=== PATIENT | male | born 1960 | race Caucasian/White ===

== ENCOUNTER 2019-09-04 14:18 | Observation (INO) | payer OTHER, SELFPAY ==
[2019-09-04] VITALS (17 sets, daily range): BP systolic 165–211; BP diastolic 11–113; PULSE 59–90; RESP 14–21; TEMP 36.4–36.8; O2SAT 95–98; BMI 21.8; BMI 21.9; BMI 22.0
--- NOTE | 2019-09-04 14:26 | RAD_ITS ---
STUDY: X-RAY CHEST REASON FOR EXAM: Male, 59 years old. Left face numbness and tingling TECHNIQUE: Single AP portable view of the chest. COMPARISON: None. FINDINGS: There is hyperinflation of the lungs consistent with chronic obstructive lung disease (COPD). There is no demonstrated pleural abnormality. Normal size heart. Normal mediastinum and shiraz. Normal visualized pulmonary arteries. Normal visualized aortic arch and descending thoracic aorta. Normal visualized thoracic spine. Normal visualized ribs, clavicles, and shoulders. There is no demonstrated abnormality of the visualized soft tissue structures of the upper abdomen. RAD/Chest 1 View IMPRESSION: Emphysema without pneumonia or atelectasis. Electronically Signed: Yoseph Maradiaga MD at 15:13 EDT Tel , Service support ,
--- NOTE | 2019-09-04 14:26 | CT_ITS ---
We are attempting to reach an attending provider to discuss findings. An addendum with communication details will be sent when the communication is complete. STUDY: CT BRAIN WITHOUT CONTRAST REASON FOR EXAM: Male, 59 years old. Left-sided numbness. RADIATION DOSAGE (If Supplied By Facility): CTDIvol = ( 60.81 ) mGy, DLP = ( 1089.89 ) mGycm TECHNIQUE: Transaxial CT imaging of the brain was performed without administration of intravenous contrast material. Individualized dose optimization techniques were used for this CT. COMPARISON: No relevant priors. FINDINGS: Normal soft tissue structures. Normal calvarium. Normal size ventricles and extra-axial spaces for the patient's age. Normal white matter tracts of the cerebral hemispheres. Normal basal ganglia and thalami. Normal brainstem. Normal cerebellum. There is no intracranial hemorrhage. There are 2 areas of ill-defined decreased attenuation within the left parietal lobe which may represent subacute infarcts or masses. Correlation with MRI with contrast is recommended. Normal visualized paranasal sinuses. CT/Brain/Head without Contrast IMPRESSION: 2 irregular areas of decreased attenuation within left parietal lobe which may represent subacute infarcts or masses. Correlation MRI with contrast is recommended. No acute intracranial hemorrhage. Electronically Signed: Yoseph Maradiaga MD at 14:47 EDT Tel , Service support ,
--- NOTE | 2019-09-04 14:26 | EKG12_ITS ---
Test Reason : STROKEALERT Blood Pressure : / mmHG Vent. Rate : 071 BPM Atrial Rate : 071 BPM P-R Int : 192 ms QRS Dur : 096 ms QT Int : 432 ms P-R-T Axes : 062 -29 038 degrees QTc Int : 469 ms Normal sinus rhythm Minimal voltage criteria for LVH, may be normal variant Borderline ECG Confirmed by SILVIA ALTMAN, KAYLA ([id number]), news assignment editor JENNI ARTEAGA ([id number]) on 09/10/2019 9:34:17 AM Referred By: Whitley Lu Confirmed By:GEORGE VEGA MD
--- NOTE | 2019-09-04 14:27 | CT_ITS ---
STUDY: CTA HEAD AND NECK WITH CONTRAST REASON FOR EXAM: Male, 59 years old. Stroke, left-sided numbness RADIATION DOSAGE (If Supplied By Facility): CTDIvol = ( 14.43 ) mGy, DLP = ( 531.44 ) mGycm TECHNIQUE: CT angiography was performed with a multi-detector CT scanner. Data acquisition was obtained from the skull base through the vertex following intravenous administration of IV Isovue 370 100. MIP images were reconstructed from the axial data set. Post-processing of the angiographic images was performed, with multiplanar reformation and 3D reconstruction. Individualized dose optimization techniques were used for this CT. COMPARISON: No relevant priors. FINDINGS: Normal bilateral petrous carotid arteries. There is calcified plaque formation of the right cavernous carotid artery, without a cross-sectional luminal stenosis. There is calcified plaque formation of the left cavernous carotid artery, with a mild stenosis (less than 50%). Normal right A1 segments of the anterior cerebral artery. Normal left A1 segments of the anterior cerebral artery. Normal intact anterior communicating artery (ACOM). Normal bilateral A2 segments of the anterior cerebral arteries. Normal right M1 and M2 segments of the middle cerebral arteries, with a normal M1 bifurcation. Normal left M1 and M2 segments of the middle cerebral arteries, with a normal M1 bifurcation. Normal right posterior communicating artery (PCOM). Normal left posterior communicating artery (PCOM). Normal bilateral vertebral arteries. Normal basilar artery with a normal basilar bifurcation. The visualized bilateral superior cerebellar (SCA) arteries are normal. Normal bilateral P1, P2 and visualized P3 segments of the posterior cerebral arteries. There is no demonstrated aneurysm of the [place] of [place]. There is no demonstrated abnormality of the visualized brain. AORTIC ARCH: There is a bovine origin of the great vessels arising from the aortic arch with a common origin of the brachiocephalic and left common carotid artery. Normal origin of the left subclavian artery. Normal origins of the brachiocephalic, left common carotid, and left subclavian arteries. RIGHT CAROTID ARTERIES: Normal right common carotid artery (CCA). There is mild atherosclerotic plaque formation with minimal narrowing of the right carotid bulb. Normal origin of the right internal carotid (ICA) artery without a hemodynamically significant stenosis. Normal visualized cervical portion of the right internal carotid artery. Normal origin of the right external carotid artery (ECA). LEFT CAROTID ARTERIES: Normal left common carotid artery (CCA). There is mild atherosclerotic plaque formation with minimal narrowing of the left carotid bulb. Normal origin of the left internal carotid (ICA) artery without a hemodynamically significant stenosis. Normal visualized cervical portion of the left internal carotid artery. Normal origin of the left external carotid artery (ECA). VERTEBRAL ARTERIES: Normal bilateral vertebral arteries. CT/CTA Head AND Neck W/ Contrast IMPRESSION: 1. Normal CT of the head. 2. Mild amount of calcified plaque at both carotid bifurcations but no significant stenosis. 3. Patent vertebral arteries bilaterally. 4. A bovine arch. Electronically Signed: Yoseph Maradiaga MD at 15:12 EDT Tel , Service support ,
--- NOTE | 2019-09-04 14:33 | NURSING ---
NO OLD EKGS
[2019-09-04 14:46] LABS: Bedside Glucose 116 mg/dL (70-110)
--- NOTE | 2019-09-04 14:51 | ED.RN ---
[facility] SPEAKING WITH PT VIA ROBOT.
[2019-09-04 14:54] LABS: Absolute Lymphocyte Count 2.12 X10^3/uL (0.83-4.51); Basophil# 0.07 X10^3/uL; Eosinophil# 0.17 X10^3/uL; Eosinophils% 2.4 % (0-5); Hematocrit 41.4 % (40-54); Lymphocyte # 2.12 X10^3/ul (4.0); Lymphocyte % 29.9 % (19-41); Mean Corp Hgb Conc 33.8 g/dL (32-36); Mean Corpuscular Hgb 27.9 pg (27.0-32.0); Mean Corpuscular Volume 82.5 fL (80-94); Mean Platelet Vol. 9.1 fl (6.2-12.0); Monocyte# 0.69 X10^3/uL; Monocyte% 9.7 % (0-10); NRBC Flagged by Analyzer 0 % (0-5); Neutrophil % 56.4 % (47-70); Platelet Count 182 K/mm3 (150-450); RBC Distribution Width CV 13.2 % (11.6-14.6); RBC Distribution Width SD 39.3 fl (35.1-43.9); Red Blood Count 5.02 M/mm3 (4.6-6.2); White Blood Count 7.1 K/mm3 (4.4-11.0)
[2019-09-04 15:01] LABS: International Normalized Ratio 1.1; Prothrombin Time (Protime)PT. 13.9 SECONDS (11.7-14.9)
[2019-09-04] MEDS: Aspirin 325 MG Tablet PO (15:01)
[2019-09-04 15:02] LABS: Partial Thromboplast Time 27.6 Seconds (24.1-36.2)
[2019-09-04 15:11] LABS: Anion Gap 6 (5-15); BUN 16 mg/dL (7-18); BUN/Creat Ratio 12.4 RATIO (10-20); Calcium,Total 8.3 mg/dL (8.5-10.1); Chloride 103 mmol/L (98-107); Creatinine, Serum 1.29 mg/dL (0.70-1.30); EST Glomerular Filtration Rate 61 mL/min (>60); Est Glom Filt Rate - Afr Amer 73 mL/min (>60); Estimated Creatinine Clearance 74.74 ml/min; Glucose 103 mg/dL (74-106); Sodium Level 136 mmol/L (136-145)
--- NOTE | 2019-09-04 15:37 | PCM.HP.STD ---
Problem List (1) HTN (hypertension) Status: Chronic (2) Tobacco abuse Status: Resolved History of Present Illness Date of Admission: 09/04/19 Chief Complaint: Left face and left arm numbness. The patient is a 59 year old M who presents emergency room due to left face and left arm numbness which lasted less than 1 hour. He denies vision changes, slurred speech, facial droop, unilateral weakness or other neurologic symptoms. He reports his symptoms began around 2 PM and resolved prior to coming to the emergency room. He denies history of stroke. He reports he had an open cholecystectomy approximately 8 weeks ago and was told he had high blood pressure at that time. He was placed on lisinopril, he has not monitored his blood pressure since that time. He reports he quit smoking in February of this year. He denies other past medical history. Past Medical History Past Medical History (Chronic Problems): Chronic Problems HTN (hypertension) (Chronic) Allergies penicillin V potassium [From Pen-Vee K] Allergy (Verified 09/04/19 14:46) Unknown Home Medications: Ambulatory Orders Medication Instructions Recorded Naproxen [Naprosyn] 500 mg PO BID #20 tablet 02/05/16 Oxycodone HCl/Acetaminophen 1 - 2 tablet PO Q4H PRN PRN #20 02/05/16 [Percocet 5/325] tablet Lisinopril 20 mg PO DAILY 09/04/19 Surgical History: - - Open cholecystectomy, tonsillectomy Psychiatric History: No pertinent psych hx Lives: Spouse/ Significant Other Smoking Status: Former smoker Alcohol: None Drugs: None - *Family History Maternal History Items: - - Denies known paternal medical history including cardiac history. Paternal History Items: Heart Disease Review of Systems Constitutional: Denies: Chills, Fever, Weight Change HEENT: Denies: Head Aches, Sinus Congestion, Sinus Drainage Cardiovascular: Denies: Chest Pain, Palpitations Respiratory: Denies: Cough, Shortness of breath at rest, Sputum production Gastrointestinal: Denies: Abdominal Pain, Nausea, Vomiting Genitourinary: Denies: Dysuria Musculoskeletal: Reports: Arm Pain Skin: Denies: Rash, Wounds Neurological: Reports: Numbness - Left face and left arm. Denies: Focal weakness, Tingling Psychiatric: Denies: Anxiety, Depression, Homicidal Ideations, Suicidal Ideations Hematologic/ Lymphatic: Denies: Easy Bruising, Easy Bleeding VTE Information - Inpt Only VTE Present on Admission: No VTE Mechan Device Prophylaxis: None VTE Pharm Prophylaxis ordered?: Yes - Physical Exam General: Alert, Oriented x3, Cooperative HEENT: Atraumatic, PERRLA, EOMI, Normocephalic Neck: Supple, No JVD, Negative Carotid Bruits Lungs: Clear to auscultation, Normal air movement Cardiovascular: Regular rate, Regular Rhythm, Normal S1, Normal S2, No murmurs Abdomen: Bowel Sounds Present, Soft, Non Tender, Non-Distended Extremities: No clubbing, No cyanosis, No edema, Capillary Refill Less than 3 Seconds Skin: No rashes, No breakdown Musculoskeletal: No Tenderness to Palpation of Joints or Extremities Neurological: Cranial nerves II-XII grossly intact, Neuro grossly intact Psych/Mental Status: Normal Affect, Appropriate Vital Signs Temp Pulse Resp BP Pulse Ox 98.2 F 90 17 199/109 H 98 09/04/19 14:20 09/04/19 14:26 09/04/19 14:26 09/04/19 14:56 09/04/19 14:36 Oxygen Delivery Method Room Air Weight: 188 lb 14.978 oz Body Mass Index (BMI) 21.8 Finger Stick Blood Glucose 116 Laboratory Tests Past 24 Hrs 09/04/19 09/04/19 09/04/19 14:45 14:45 14:45 WBC 7.1 RBC 5.02 Hgb 14.0 Hct 41.4 MCV 82.5 MCH 27.9 MCHC 33.8 RDW Std Deviation 39.3 RDW Coeff of Joe 13.2 Plt Count 182 MPV 9.1 Immature Gran % (Auto) 0.600 Neut % (Auto) 56.4 Lymph % (Auto) 29.9 Isabella % (Auto) 9.7 Eos % (Auto) 2.4 Baso % (Auto) 1.0 Absolute Neuts (auto) 4.0 Absolute Lymphs (auto) 2.12 Nucleated RBC % 0 PT 13.9 INR 1.1 APTT 27.6 Sodium 136 Potassium 4.0 Chloride 103 Carbon Dioxide 27.0 Anion Gap 6 BUN 16 Creatinine 1.29 Estim Creat Clear Calc 74.74 Est GFR (MDRD) Af Amer 73 Est GFR (MDRD) Non-Af 61 BUN/Creatinine Ratio 12.4 Glucose 103 Calcium 8.3 L Troponin I < 0.015 POC Glucose 09/04/19 14:27 POC Glucose 116 H Assessment/Plan All Active Problems Tobacco abuse (Resolved) 1. Probable TIA-brain CT on admission shows 2 irregular areas of decreased attenuation within the left parietal lobe, possible subacute infarcts versus masses? CTA of head and neck normal. Obtain MRI of brain with and without contrast. Obtain echocardiogram. Check TSH, magnesium, hemoglobin A1c. NIHSS. PT/OT/ST. lipid profile in a.m. Aspirin, statin. 2. Hypertensive urgency-blood pressure systolic greater than 200 in ER. Patient received IV labetalol in ER. As needed hydralazine for systolic blood pressure greater than 220. Permissive given #1. Hold home lisinopril regimen. May need additional oral agents at discharge if blood pressure remains above goal following stroke work-up. 3. History of tobacco use-quit February 2018. DVT prophylaxis-SCDs, lovenox This patient was seen by KATIE Prince under the supervision of Dr. Lu.
--- NOTE | 2019-09-04 15:47 | ED.DCSUM_ITS ---
- ER Visit Summary Date of Service: 09/04/19 Chief Complaint: Numbness History of Present Illness: The patient is a 59 M who presents with left face and left arm numbness. Symptoms started suddenly at 2 PM. No other associated symptoms like weakness, facial droop, speech changes, or vision changes. No hi story of this before. History of hypertension and smoking. No blood thinners. Physical Examination: Blood pressure 203/110. Otherwise vitals unremarkable. Afebrile. NIH stroke scale is 1 for left face and left arm numbness. The remainder the exam is unremarkable. Test Results: CT brain showed left parietal subacute infarct versus masses. CTA showed plaques but otherwise unremarkable. Chest x-ray normal. Labs, troponin, EKG unremarkable. Emergency Department Course and Treatment: Patient symptoms are rapidly resolving. I suspect this is a TIA. He will need further inpatient evaluation. Neurology agreed. Hospitalist was contacted. He was treated with labetalol for his hypertension. Repeat blood pressure 166/110. No further symptoms. Hospitalist was contacted to admit. Treatment Plan: As above Disposition: Admission Impression: 1. Left-sided numbness 2. Hypertension This note was generated with [employer] software. It may contain incorrect words, spelling, and punctuation that were not noted in review of the chart prior to signing ED Disposition - Plan for ED Patient: Referrals: Gonzalo Franklin MD [Primary Care Provider] -
--- NOTE | 2019-09-04 15:53 | NURSING ---
107 OBS TIA, HYPERTENSION WHITE
--- NOTE | 2019-09-04 15:57 | ED.RN ---
d/c NIH per . 3 zero NIH's.
--- NOTE | 2019-09-04 16:05 | CM.ED ---
Social Work Responding to Stroke Alert. No family present. Patient life enrichment assistant present and stating that family will be contacted about current situation. This manager social media inquiring about this manager social media contact family, patient stating to be able to notify family on own. Patient alert and oriented and sitting up and speaking with this social work. Support provided. Wil MCELROY, QUAN
--- NOTE | 2019-09-04 16:14 | ED.RN ---
trandate arrived to ed from pharmacy after pt left for [facility]. no trandate in ed. [facility] Keron Prabhakar called and informed of what is going on.
--- NOTE | 2019-09-04 16:15 | ECHOD_ITS ---
Reason For Study: TIA/CVA Procedure This was a 2D Doppler, Color Flow transthoracic echocardiogram. Exam performed portable in patient room. Left Ventricle Normal LV size. Concentric left ventricular hypertrophy. The estimated ejection fraction is 55 %. No evidence for diastolic dysfunction. No regional wall motion abnormalities noted. Right Ventricle Normal RV size. Normal systolic function. Atria Normal left atrium. Normal right atrium. Probable patent foramen ovale. Bubble study was +ve for R to L shunt. Mitral Valve There is no mitral valve stenosis. No mitral valve insufficiency. Tricuspid Valve There is no tricuspid stenosis. No tricuspid valve insufficiency. Unable to estimate RV systolic pressure due to insufficient tricuspid regurgitant envelope. Aortic Valve Trisinus/trileaflet aortic valve. Mild diffuse aortic valve thickening. There is no aortic stenosis. Mild (1+) aortic valve insufficiency. Pulmonic Valve There is no pulmonic valvular stenosis. Trivial pulmonic valve insufficiency. Great Vessels Normal aortic root. Pericardium/Pleural No pericardial effusion. Medication Performed a rapid injection of agitated mix of 9 cc saline and 1cc air to assess for atrial septal defect. MMode/2D Measurements & Calculations LVIDd: 5.0 cm IVSd: 1.4 cm Ao root diam: 3.6 cm LVIDs: 3.5 cm LVPWd: 1.2 cm RVDd: 4.2 cm FS: 29.3 % LAV(MOD-bp): 33.2 ml LVAd ap4: 34.6 cm2 SV(MOD-sp4): 61.7 ml LAV(MOD-bp) Indexed: 15.1 ml/m2 EDV(MOD-sp4): 112.3 ml LAV(MOD-sp2): 36.7 ml EDV(sp4-el): 115.2 ml LAV(MOD-sp4): 25.6 ml LVAs ap4: 21.6 cm2 ESV(MOD-sp4): 50.7 ml ESV(sp4-el): 52.2 ml EF(MOD-sp4): 54.9 % EF(sp4-el): 54.7 % SV(sp4-el): 63.0 ml LA A4 area: 11.0 cm2 LA dimension(2D): 3.5 cm RA A4 area: 12.2 cm2 Doppler Measurements & Calculations MV E max clifford: 40.8 cm/sec Lat Peak E' Clifford: 3.2 cm/sec Med Peak E' Clifford: 2.7 cm/sec MV A max clifford: 80.6 cm/sec E/E' lat: 12.9 E/E' med: 15.0 MV E/A: 0.51 Ao V2 max: 115.9 cm/sec LV V1 max: 86.4 cm/sec PA V2 max: 71.7 cm/sec Ao max P.4 mmHg LV V1 max P.0 mmHg Ao V2 mean: 85.8 cm/sec Ao mean P.2 mmHg Ao V2 VTI: 25.6 cm Interpretation Summary No evidence for diastolic dysfunction. The estimated ejection fraction is 55 %. Probable patent foramen ovale. Bubble study was +ve for R to L shunt Mild (1+) aortic valve insufficiency. Ordering Physician: Whitley Lu Referring Physician: Gonzalo Franklin Performed By: Chanelle Groves RDCS, RVT
--- NOTE | 2019-09-04 16:22 | CHAPLAIN ---
Type of Pastoral Visit ___ Initial Visit ___ Follow-up Visit ___ On-call Visit ___ General Patient Visit ___ Spiritual Assessment ___ Family Conference ___ Bereavement _x__ Rapid Response ___ Code Blue ___ Other (describe below) Pastoral Care Referral From ___ Patient ___ Family ___ Nurse ___ Physician ___ Transit Driver ___ Reconciler _x__ Other (describe below) Sacrament/Intervention ___ Active listening ___ Anointing ___ Adventism ___ Bereavement ___ Communion ___ [place] ___ ___ Life review ___ Prayer ___ Reconciliation ___ Sacrament of Sick _x__ Supportive presence ___ Wedding ___ Other (describe below) Pastoral Comments arrived to stroke alert while patient was in CT; met with SO of patient and offered support as desired; SO declines support at this time
[2019-09-04 16:53] LABS: Magnesium 1.8 mg/dL (1.6-2.6); Thyroid Stim Hormone (TSH) 0.84 uIU/mL (0.358-3.74)
[2019-09-04] MEDS: 0.9% Normal Saline 1,000 ML 100 ML IV (16:53)
[2019-09-04 16:54] LABS: Hemoglobin A1c 5.3 % (4.2-6.3)
--- NOTE | 2019-09-04 17:13 | EKG12_ITS ---
Test Reason : CP ADMIT Blood Pressure : / mmHG Vent. Rate : 059 BPM Atrial Rate : 059 BPM P-R Int : 176 ms QRS Dur : 096 ms QT Int : 466 ms P-R-T Axes : 031 -27 045 degrees QTc Int : 461 ms Sinus bradycardia Minimal voltage criteria for LVH, may be normal variant Borderline ECG When compared with ECG of 04-SEP-2019 14:46, MANUAL COMPARISON REQUIRED, DATA IS UNCONFIRMED Confirmed by CHARLES LANDON ([id number]), editor house organ JENNI ARTEAGA ([id number]) on 09/10/2019 10:48:45 AM Referred By: Whitley Lu Confirmed By:CHARLES LANDON
[2019-09-04] MEDS: LORazepam 2 MG/ML Syringe 1 MG IV (18:21)
[2019-09-04] MEDS: 0.9% NaCl Peripheral Flush Adult/Peds IV (21:20)
[2019-09-04] MEDS: Famotidine 20 MG Tablet PO (21:21)
[2019-09-04] MEDS: Atorvastatin Calcium 80 MG Tablet PO (21:21)
[2019-09-04 22:25] LABS: Amphetamine Urine VISTA NEGATIVE (<1000 ng/mL); Barbiturate Urine VISTA NEGATIVE (< 200 ng/mL); Benzodiazepine Urine VISTA NEGATIVE (< 200 ng/mL); Cocaine Urine VISTA NEGATIVE (< 300 ng/mL); Ecstacy Urine VISTA NEGATIVE (< 500 ng/mL); Methadone Urine VISTA NEGATIVE (< 300 ng/mL); PCP Urine VISTA NEGATIVE (< 25 ng/mL); THC Urine VISTA NEGATIVE (< 50 ng/mL); Vista UDS pH Range 7
[2019-09-05] VITALS (9 sets, daily range): BP systolic 156–175; BP diastolic 92–96; PULSE 54–77; RESP 13–20; TEMP 36.4–36.7; O2SAT 95–100; BMI 21.9
[2019-09-05] MEDS: Enoxaparin 40 MG/0.4 ML Syringe SC (05:02)
[2019-09-05] MEDS: 0.9% Normal Saline 1,000 ML 100 ML IV (05:03)
[2019-09-05 06:09] LABS: Absolute Lymphocyte Count 2.19 X10^3/uL (0.83-4.51); Absolute Neutrophil Count 4.3 X10^3/uL (2.0-7.7); Basophil# 0.07 X10^3/uL; Basophil% 0.9 % (0-1); Hematocrit 42.3 % (40-54); Hemoglobin 13.8 g/dL (13.0-16.5); Lymphocyte # 2.19 X10^3/ul (4.0); Lymphocyte % 29.1 % (19-41); Mean Corp Hgb Conc 32.6 g/dL (32-36); Mean Corpuscular Hgb 26.8 pg (27.0-32.0); Mean Corpuscular Volume 82.1 fL (80-94); Mean Platelet Vol. 9.2 fl (6.2-12.0); Monocyte# 0.62 X10^3/uL; Monocyte% 8.2 % (0-10); NRBC Flagged by Analyzer 0 % (0-5); Neutrophil # 4.33 X10^3/uL (2.7-7.7); Neutrophil % 57.5 % (47-70); Platelet Count 172 K/mm3 (150-450); RBC Distribution Width CV 13.5 % (11.6-14.6); RBC Distribution Width SD 40.1 fl (35.1-43.9); Red Blood Count 5.15 M/mm3 (4.6-6.2); White Blood Count 7.5 K/mm3 (4.4-11.0)
[2019-09-05 06:31] LABS: Anion Gap 7 (5-15); BUN 15 mg/dL (7-18); BUN/Creat Ratio 13.3 RATIO (10-20); Calcium,Total 8.4 mg/dL (8.5-10.1); Chloride 109 mmol/L (98-107); Cholesterol 137 mg/dL (200); Creatinine, Serum 1.13 mg/dL (0.70-1.30); EST Glomerular Filtration Rate 71 mL/min (>60); Est Glom Filt Rate - Afr Amer 85 mL/min (>60); Glucose 91 mg/dL (74-106); High Density Lipoprotein 38 mg/dL; Potassium 4.2 mmol/L (3.5-5.1); Sodium Level 142 mmol/L (136-145); Triglycerides 76 mg/dL; Very Low Density Lipoprotein 15 mg/dL (5-40)
[2019-09-05] MEDS: Aspirin 81 MG TAB.CHEW PO (07:55)
[2019-09-05] MEDS: Famotidine 20 MG Tablet PO (07:55)
[2019-09-05] MEDS: LORazepam 2 MG/ML Syringe 1 MG IV (11:20)
--- NOTE | 2019-09-05 12:00 | MRI_ITS ---
STUDY: MRI BRAIN WITHOUT CONTRAST REASON FOR EXAM: Male, 59 years old. Left-sided numbness TECHNIQUE: Standardized multiplanar fat and water weighted pulse sequences were obtained. COMPARISON: CT 09/04/2019 FINDINGS: There is mild cerebral atrophy with widening of the extra-axial spaces and ventricular dilatation. There are a limited number of small white matter hyperintensities, distributed throughout the deep white matter tracts of the cerebral hemispheres, consistent with mild chronic white matter ischemic changes. Focal areas of encephalomalacia and gliosis within the left parietal lobe corresponding to the area seen on CT consistent with chronic infarcts. There is no evidence for recent intracranial ischemia or other cause of cytotoxic edema on diffusion weighted imaging (DWI). Normal T2* images of the brain without demonstrated susceptibility artifact. There is no demonstrated hemosiderin stain. Normal bilateral basal ganglia. Normal thalami. There is no extra-axial fluid accumulation. Normal flow voids within the major intracranial circulation suggesting patency by spin echo criteria. Normal sella turcica, pituitary gland, infundibular stalk, optic chiasm and hypothalamus. Normal tectal plate and pineal gland. Normal midbrain, janey and medulla. Normal cerebellum. Normal basal cisterns. Normal bilateral temporal bones. Normal bilateral internal auditory canals. No demonstrated orbital abnormality, within the constraints of a routine brain study. Normal visualized paranasal sinuses. Normal calvarium and skull base. Normal visualized soft tissue structures. Normal visualized upper cervical spine. MRI/Brain without Contrast IMPRESSION: Involutional changes of the brain, as described above. Electronically Signed: Yoseph Maradiaga MD at 13:33 EDT Tel , Service support ,
--- NOTE | 2019-09-05 12:23 | CON.PCM_ITS ---
Problem List (1) TIA (transient ischemic attack) Status: Acute Reason for Consult Date of Consultation: 09/05/19 Reason for Consultation: TIA History of Present Illness: The patient is a 59 year old M with HTN admitted with acute onset left facial and numbness. Per patient his symptoms started suddenly at 2 AM yesterday 09/04/2019 when he had acute onset left facial numbness and left arm numbness, the symptoms lasted for about 30 minutes per patient, per ED documentation on admission the NIHSS was about 1, [facility] telemetry stroke was consulted and patient was deemed not to be a TPA candidate due to low NIH stroke scale with improving symptoms. Patient at baseline is not on any aspirin. He denies any headache, dizziness, focal motor weakness, visual disturbances or speech disturbances at present. Per patient his left arm and left face numbness has resolved completely. CT head done on admission reported to show possible subacute left parietal infarct versus masses. CTA head/neck did not show any hemodynamically significant stenosis or occlusion. He tried getting MRI brain yesterday but was very claustrophobic and will be attempting to get another MRI brain again today. Patient's systolic blood pressure on admission was greater than 200 mmHg. Past Medical History Past Medical History (Chronic Problems): Chronic Problems HTN (hypertension) (Chronic) Allergies penicillin V potassium [From [employer]] Allergy (Verified 09/04/19 14:46) Unknown Home Medications: Ambulatory Orders Medication Instructions Recorded Acetaminophen [Tylenol Extra 1,000 mg PO DAILY PRN PRN 09/04/19 Strength] Ibuprofen 400 mg PO BID PRN PRN 09/04/19 Lisinopril 20 mg PO DAILY 09/04/19 Surgical History: - - Open cholecystectomy, tonsillectomy Psychiatric History: No pertinent psych hx Lives: Spouse/ Significant Other Smoking Status: Former smoker Tobacco Use: Cigarettes Alcohol: None Drugs: None - *Family History Maternal History Items: - - Denies known paternal medical history including cardiac history. Paternal History Items: Heart Disease Review of Systems Constitutional: Reports: - - Complete ROS negative except as documented in HPI Patient Problems: Active and Suspected Problems TIA (transient ischemic attack) (Acute) - Physical Exam General: Alert HEENT: Normocephalic Neck: Supple Lungs: Normal air movement Cardiovascular: Normal S1, Normal S2 Abdomen: Bowel Sounds Present Extremities: No cyanosis Neurological: - - Conscious, alert, CN II through XII grossly intact, power 5 x 5 both upper and lower extremities, no sensory loss, no cerebellar signs, gait deferred, reflexes + B/L B/S/T/K/A, NIHSS 0 at present, mRS 0 at baseline Psych/Mental Status: Normal Affect Vital Signs Temp Pulse Resp BP Pulse Ox 97.7 F L 77 14 173/95 H 95 09/05/19 08:42 09/05/19 08:42 09/05/19 08:42 09/05/19 08:42 09/05/19 08:42 Oxygen Delivery Method Room Air Weight: 86.183 kg Body Mass Index (BMI) 21.9 Finger Stick Blood Glucose 116 Intake and Output for Last 24 Hours 09/03/19 09/04/19 09/05/19 23:59 23:59 23:59 Intake Total 948.33 / 948.33 1518.34 / 1518.34 Balance 948.33 / 948.33 1518.34 / 1518.34 Laboratory Tests Past 24 Hrs 09/04/19 09/04/19 09/04/19 14:45 14:45 14:45 WBC 7.1 RBC 5.02 Hgb 14.0 Hct 41.4 MCV 82.5 MCH 27.9 MCHC 33.8 RDW Std Deviation 39.3 RDW Coeff of Joe 13.2 Plt Count 182 MPV 9.1 Immature Gran % (Auto) 0.600 Neut % (Auto) 56.4 Lymph % (Auto) 29.9 Valley % (Auto) 9.7 Eos % (Auto) 2.4 Baso % (Auto) 1.0 Absolute Neuts (auto) 4.0 Absolute Lymphs (auto) 2.12 Nucleated RBC % 0 PT 13.9 INR 1.1 APTT 27.6 Sodium 136 Potassium 4.0 Chloride 103 Carbon Dioxide 27.0 Anion Gap 6 BUN 16 Creatinine 1.29 Estim Creat Clear Calc 74.74 Est GFR (MDRD) Af Amer 73 Est GFR (MDRD) Non-Af 61 BUN/Creatinine Ratio 12.4 Glucose 103 Hemoglobin A1c Calcium 8.3 L Magnesium Troponin I < 0.015 Triglycerides Cholesterol LDL Cholesterol VLDL Cholesterol HDL Cholesterol TSH Urine Opiates Screen Urine Methadone Screen Ur Barbiturates Screen Ur Phencyclidine Scrn Ur Amphetamines Screen U Methamphetamin-MDMA U Benzodiazepines Scrn Urine Cocaine Screen U Cannabinoids Screen Ur Drug Screen Comment 09/04/19 09/04/19 09/04/19 14:45 14:45 21:50 WBC RBC Hgb Hct MCV MCH MCHC RDW Std Deviation RDW Coeff of Joe Plt Count MPV Immature Gran % (Auto) Neut % (Auto) Lymph % (Auto) Valley % (Auto) Eos % (Auto) Baso % (Auto) Absolute Neuts (auto) Absolute Lymphs (auto) Nucleated RBC % PT INR APTT Sodium Potassium Chloride Carbon Dioxide Anion Gap BUN Creatinine Estim Creat Clear Calc Est GFR (MDRD) Af Amer Est GFR (MDRD) Non-Af BUN/Creatinine Ratio Glucose Hemoglobin A1c 5.3 Calcium Magnesium 1.8 Troponin I Triglycerides Cholesterol LDL Cholesterol VLDL Cholesterol HDL Cholesterol TSH 0.84 Urine Opiates Screen NEGATIVE Urine Methadone Screen NEGATIVE Ur Barbiturates Screen NEGATIVE Ur Phencyclidine Scrn NEGATIVE Ur Amphetamines Screen NEGATIVE U Methamphetamin-MDMA NEGATIVE U Benzodiazepines Scrn NEGATIVE Urine Cocaine Screen NEGATIVE U Cannabinoids Screen NEGATIVE Ur Drug Screen Comment 09/05/19 09/05/19 05:35 05:35 WBC 7.5 RBC 5.15 Hgb 13.8 Hct 42.3 MCV 82.1 MCH 26.8 L MCHC 32.6 RDW Std Deviation 40.1 RDW Coeff of Joe 13.5 Plt Count 172 MPV 9.2 Immature Gran % (Auto) 0.300 Neut % (Auto) 57.5 Lymph % (Auto) 29.1 Valley % (Auto) 8.2 Eos % (Auto) 4.0 Baso % (Auto) 0.9 Absolute Neuts (auto) 4.3 Absolute Lymphs (auto) 2.19 Nucleated RBC % 0 PT INR APTT Sodium 142 Potassium 4.2 Chloride 109 H Carbon Dioxide 26.0 Anion Gap 7 BUN 15 Creatinine 1.13 Estim Creat Clear Calc 85.80 Est GFR (MDRD) Af Amer 85 Est GFR (MDRD) Non-Af 71 BUN/Creatinine Ratio 13.3 Glucose 91 Hemoglobin A1c Calcium 8.4 L Magnesium Troponin I Triglycerides 76 Cholesterol 137 LDL Cholesterol 84 VLDL Cholesterol 15 HDL Cholesterol 38 L TSH Urine Opiates Screen Urine Methadone Screen Ur Barbiturates Screen Ur Phencyclidine Scrn Ur Amphetamines Screen U Methamphetamin-MDMA U Benzodiazepines Scrn Urine Cocaine Screen U Cannabinoids Screen Ur Drug Screen Comment POC Glucose 09/04/19 14:27 POC Glucose 116 H Assessment/Plan All Active Problems TIA (transient ischemic attack) (Acute) Tobacco abuse (Resolved) The patient is a 59 year old M with HTN admitted with acute onset left facial and numbness. Per patient his symptoms started suddenly at 2 AM yesterday 09/04/2019 when he had acute onset left facial numbness and left arm numbness, the symptoms lasted for about 30 minutes per patient, per ED documentation on admission the NIHSS was about 1, [facility] telemetry stroke was consulted and patient was deemed not to be a TPA candidate due to low NIH stroke scale with improving symptoms. Patient at baseline is not on any aspirin. He denies any headache, dizziness, focal motor weakness, visual disturbances or speech disturbances at present. Per patient his left arm and left face numbness has resolved completely. CT head done on admission reported to show possible subacute left parietal infarct versus masses. CTA head/neck did not show any hemodynamically significant stenosis or occlusion. He tried getting MRI brain yesterday but was very claustrophobic and will be attempting to get another MRI brain again today. Patient's systolic blood pressure on admission was greater than 200 mmHg Impression Probable TIA Plan ?Try and obtain MRI brain. If patient cannot do an MRI brain that may need to do a repeat CT head ?Aspirin 81 mg p.o. once daily. Bleeding risk discussed in detail with the patient. ABCD 2 score of 2, so would avoid dual antiplatelet at present. ?Lipitor 80 mg p.o. nightly ?CTA head/neck no hemodynamically significant stenosis or occlusion. ?TTE ?HbA1c 5.3, LDL 84 ?Stroke risk factors discussed and stroke education provided ?Permissive hypertension for 24 hours and then better gradual blood pressure control. ?Goal long-term blood pressure less than 130/80 mmHg and goal HPI of the less than 7% ?Patient counseled not to smoke cigarettes or drink alcohol. ?30-day event recorder on discharge ?PT/OT/ST -GI/DVT prophylaxis -Fall precautions -Further medical management per hospitalist team -Please call with questions if any -Follow-up with neurology in 4 weeks -Thank you for allowing us to participate in patient's care and management This note has been generated using [id number] dictation software. It may contain incorrect words, spellings and punctuation that were not noted in the review of the note prior to signing Code Visit Inpatient E&M: 51487 Init Hosp L3
--- NOTE | 2019-09-05 14:02 | DCINST_ITS ---
- Discharge Diagnoses Current Active Problems: Current Active and Chronic Problems HTN (hypertension) (Chronic) TIA (transient ischemic attack) (Acute) You will use the following diet at home:: Cardiac Discharge Activity: Return to Normal Activity Call your doctor if you observe: Shortness of breath, Dizziness, Fainting spells, Chest pain Allergies/Adverse Reactions: Allergies penicillin V potassium [From [employer]] Allergy (Verified 09/04/19 14:46) Unknown Medications to take at Discharge Acetaminophen [Tylenol] 1,000 mg PO DAILY PRN PRN 09/04/19 Lisinopril 20 mg PO DAILY 09/04/19 Aspirin [Aspirin, Baby] 81 mg PO DAILY@0800 #30 tab.chew 09/05/19 Atorvastatin Calcium [Lipitor] 80 mg PO QHS #30 tab 09/05/19 The following prescriptions were given: Aspirin [Aspirin, Baby] 81 mg PO DAILY@0800 #30 tab.chew Transmission Status[facility] Atorvastatin Calcium [Lipitor] 80 mg PO QHS #30 tab Transmission Status: Pending to [facility] Orders to be completed after discharge: 30-Day Event Recorder [[facility]] Location: None Selected Primary Care Physician: Gonzalo Franklin MD [Primary Care Provider] - Please follow up with your Primary Care Physician in: 1 Week Test Results: Test results from this visit will be discussed in further detail at your follow- up appointment, if applicable. Please Follow Up With: Hunter Foley MD When: 4 Weeks Proposed Discharge Date: 09/05/19
--- NOTE | 2019-09-05 14:05 | DS.PCM_ITS ---
<Shyanne Stanford - Last Filed: 09/05/19 14:22> Discharge Date and Diagnosis Date of Admission: 09/04/19 Date of Discharge: 09/05/19 - Primary Discharge Diagnosis Active and Suspected Problems 1. TIA 2. Hypertensive urgency 3. History of tobacco use - Secondary Discharge Diagnosis Chronic Problems HTN (hypertension) (Chronic) Hospital Course and Treatment Imaging Results: Diagnostic Data Brain CT 09/04/19 14:26 IMPRESSION: 2 irregular areas of decreased attenuation within left parietal lobe which may represent subacute infarcts or masses. Correlation MRI with contrast is recommended. No acute intracranial hemorrhage. Electronically Signed: Yoseph Maradiaga MD at 14:47 EDT Tel , Service support , ADDENDUM: 09/04/19 1455 IMPRESSION: 2 irregular areas of decreased attenuation within left parietal lobe which may represent subacute infarcts or masses. Correlation MRI with contrast is recommended. No acute intracranial hemorrhage. N.B. : The above information has been verbally conveyed by Yoseph Maradiaga MD to Dr. Violet MD, on 09/04/2019 14:48:55 (ET). Electronically Signed: Yoseph Maradiaga MD at 14:47 EDT Tel , Service support , Chest X-Ray 09/04/19 14:26 IMPRESSION: Emphysema without pneumonia or atelectasis. Electronically Signed: Yoseph Maradiaga MD at 15:13 EDT Tel , Service support , Head/Neck CTA 09/04/19 14:27 IMPRESSION: 1. Normal CT of the head. 2. Mild amount of calcified plaque at both carotid bifurcations but no significant stenosis. 3. Patent vertebral arteries bilaterally. 4. A bovine arch. Electronically Signed: Yoseph Maradiaga MD at 15:12 EDT Tel , Service support , Brain MRI 09/05/19 12:00 IMPRESSION: Involutional changes of the brain, as described above. Electronically Signed: Yoseph Maradiaga MD at 13:33 EDT Tel , Service support , Dr. Foley- neurology Operations: None Procedures: 2-D Echocardiogram Summary of Care Provided: The patient is a 59 year old M admitted 09/04/2019 due to left face and left arm numbness. 1. TIA-brain CT on admission report showed 2 irregular areas of decreased attenuation within the left parietal lobe, possible subacute infarcts versus masses? CTA of head and neck normal. MRI of brain without acute changes. Echocardiogram completed, report pending and will be reviewed prior to discharge. Continue aspirin, high-dose statin at discharge. 30-day event monitor at discharge. Follow-up with neurology in 6 weeks. Follow-up with primary care provider in 1 week. 2. Hypertensive urgency-blood pressure systolic greater than 200 in ER. Resume home lisinopril regimen. Patient will need further outpatient monitoring and may require additional agents if not within goal. 3. History of tobacco use-quit February 2018. General: Alert, Oriented x3, Cooperative HEENT: Atraumatic, PERRLA, EOMI, Normocephalic Neck: Supple, No JVD, Negative Carotid Bruits Lungs: Clear to auscultation, Normal air movement Cardiovascular: Regular rate, Regular Rhythm, Normal S1, Normal S2, No murmurs Abdomen: Bowel Sounds Present, Soft, Non Tender, Non-Distended Extremities: No clubbing, No cyanosis, No edema, Capillary Refill Less than 3 Seconds Skin: No rashes, No breakdown Musculoskeletal: No Tenderness to Palpation of Joints or Extremities Neurological: Cranial nerves II-XII grossly intact, Neuro grossly intact Psych/Mental Status: Normal Affect, Appropriate Patient seen and examined prior to discharge. Physical assessment as noted above. Patient is stable for discharge with follow up recommendations as noted above. This patient was seen by KATIE Prince under the supervision of Dr. Kilpatrick. - Physical Exam Vital Signs Temp Pulse Resp BP Pulse Ox 97.9 F 70 13 168/96 H 100 09/05/19 12:40 09/05/19 12:40 09/05/19 12:40 09/05/19 12:40 09/05/19 12:40 Oxygen Delivery Method Room Air Weight: 190 lb 0.016 oz Body Mass Index (BMI) 21.9 Finger Stick Blood Glucose 116 Intake and Output for Last 24 Hours 09/03/19 09/04/19 09/05/19 23:59 23:59 23:59 Intake Total 948.33 / 948.33 1518.34 / 1518.34 Balance 948.33 / 948.33 1518.34 / 1518.34 Laboratory Tests Past 24 Hrs 09/04/19 09/04/19 09/04/19 14:45 14:45 14:45 WBC 7.1 RBC 5.02 Hgb 14.0 Hct 41.4 MCV 82.5 MCH 27.9 MCHC 33.8 RDW Std Deviation 39.3 RDW Coeff of Joe 13.2 Plt Count 182 MPV 9.1 Immature Gran % (Auto) 0.600 Neut % (Auto) 56.4 Lymph % (Auto) 29.9 Maury % (Auto) 9.7 Eos % (Auto) 2.4 Baso % (Auto) 1.0 Absolute Neuts (auto) 4.0 Absolute Lymphs (auto) 2.12 Nucleated RBC % 0 PT 13.9 INR 1.1 APTT 27.6 Sodium 136 Potassium 4.0 Chloride 103 Carbon Dioxide 27.0 Anion Gap 6 BUN 16 Creatinine 1.29 Estim Creat Clear Calc 74.74 Est GFR (MDRD) Af Amer 73 Est GFR (MDRD) Non-Af 61 BUN/Creatinine Ratio 12.4 Glucose 103 Hemoglobin A1c Calcium 8.3 L Magnesium Troponin I < 0.015 Triglycerides Cholesterol LDL Cholesterol VLDL Cholesterol HDL Cholesterol TSH Urine Opiates Screen Urine Methadone Screen Ur Barbiturates Screen Ur Phencyclidine Scrn Ur Amphetamines Screen U Methamphetamin-MDMA U Benzodiazepines Scrn Urine Cocaine Screen U Cannabinoids Screen Ur Drug Screen Comment 09/04/19 09/04/19 09/04/19 14:45 14:45 21:50 WBC RBC Hgb Hct MCV MCH MCHC RDW Std Deviation RDW Coeff of Joe Plt Count MPV Immature Gran % (Auto) Neut % (Auto) Lymph % (Auto) Maury % (Auto) Eos % (Auto) Baso % (Auto) Absolute Neuts (auto) Absolute Lymphs (auto) Nucleated RBC % PT INR APTT Sodium Potassium Chloride Carbon Dioxide Anion Gap BUN Creatinine Estim Creat Clear Calc Est GFR (MDRD) Af Amer Est GFR (MDRD) Non-Af BUN/Creatinine Ratio Glucose Hemoglobin A1c 5.3 Calcium Magnesium 1.8 Troponin I Triglycerides Cholesterol LDL Cholesterol VLDL Cholesterol HDL Cholesterol TSH 0.84 Urine Opiates Screen NEGATIVE Urine Methadone Screen NEGATIVE Ur Barbiturates Screen NEGATIVE Ur Phencyclidine Scrn NEGATIVE Ur Amphetamines Screen NEGATIVE U Methamphetamin-MDMA NEGATIVE U Benzodiazepines Scrn NEGATIVE Urine Cocaine Screen NEGATIVE U Cannabinoids Screen NEGATIVE Ur Drug Screen Comment 09/05/19 09/05/19 05:35 05:35 WBC 7.5 RBC 5.15 Hgb 13.8 Hct 42.3 MCV 82.1 MCH 26.8 L MCHC 32.6 RDW Std Deviation 40.1 RDW Coeff of Joe 13.5 Plt Count 172 MPV 9.2 Immature Gran % (Auto) 0.300 Neut % (Auto) 57.5 Lymph % (Auto) 29.1 Maury % (Auto) 8.2 Eos % (Auto) 4.0 Baso % (Auto) 0.9 Absolute Neuts (auto) 4.3 Absolute Lymphs (auto) 2.19 Nucleated RBC % 0 PT INR APTT Sodium 142 Potassium 4.2 Chloride 109 H Carbon Dioxide 26.0 Anion Gap 7 BUN 15 Creatinine 1.13 Estim Creat Clear Calc 85.80 Est GFR (MDRD) Af Amer 85 Est GFR (MDRD) Non-Af 71 BUN/Creatinine Ratio 13.3 Glucose 91 Hemoglobin A1c Calcium 8.4 L Magnesium Troponin I Triglycerides 76 Cholesterol 137 LDL Cholesterol 84 VLDL Cholesterol 15 HDL Cholesterol 38 L TSH Urine Opiates Screen Urine Methadone Screen Ur Barbiturates Screen Ur Phencyclidine Scrn Ur Amphetamines Screen U Methamphetamin-MDMA U Benzodiazepines Scrn Urine Cocaine Screen U Cannabinoids Screen Ur Drug Screen Comment POC Glucose 09/04/19 14:27 POC Glucose 116 H Discharge Diet: Low fat/ Low Cholesterol Discharge Activity: Return to Normal Activity Call your doctor if you observe: Shortness of breath, Dizziness, Fainting spells, Chest pain Home Medications: Medications to take at Discharge Acetaminophen [Tylenol] 1,000 mg PO DAILY PRN PRN 09/04/19 Lisinopril 20 mg PO DAILY 09/04/19 Aspirin [Aspirin, Baby] 81 mg PO DAILY@0800 #30 tab.chew 09/05/19 Atorvastatin Calcium [Lipitor] 80 mg PO QHS #30 tab 09/05/19 Following Prescrptions Were Given to Patient: Aspirin [Aspirin, Baby] 81 mg PO DAILY@0800 #30 tab.chew Transmission Status: Re[facility] by [facility] Atorvastatin Calcium [Lipitor] 80 mg PO QHS #30 tab Transmission Status: Received by [facility] Other Amb Orders: 30-Day Event Recorder [[facility]] Location: None Selected Primary Care Physician: Gonzalo Franklin MD [Primary Care Provider] - Please follow up with your Primary Care Physician in: 1 Week Please Follow Up With: Hunter Foley MD When: 4 Weeks Disposition: Home Minutes spent on discharge:: 35 Patient Condition:: Stable Medical Necessity - Tobacco Use Smoking Status: Former smoker Tobacco Use: Cigarettes Meaningful Use Info Meaningful Use Diagnoses (Choose all that apply): None applicable <Valeria Kilpatrick - Last Filed: 09/10/19 23:57> Discharge Date and Diagnosis - Secondary Discharge Diagnosis Chronic Problems HTN (hypertension) (Chronic) Hospital Course and Treatment Summary of Care Provided: The patient is a 59 year old M with no significant medical who presented to the ED at [facility] c/o numbness of the Left face and LUE. Non-contrasted CTB at admission showed possible 2 subacute infarcts in the R parietal area. MRI did not show any prior evidence of infarct and had no acute findings. CTA of the head and neck were normal. No AF on telemetry. ECHO showed a patent foramen ovale with a R to Left atrial shunt. Heart - RRR without MM or gallop Lungs - CTA no edema Alert and oriented X 3 No focal neurological events. Impressions 1. TIA 2. Hypertensive urgency with numbness of the face and LUE 3. patent foramen ovale discussed with Shyanne and orders have been written.[] Continue ASA, high intensity statin and Lisinopril Follow up with PCP in 1 week for a BP check. Goal is < 130/80 - Physical Exam Vital Signs Temp Pulse Resp BP Pulse Ox 98.0 F 67 16 175/93 H 95 09/05/19 16:11 09/05/19 16:11 09/05/19 16:11 09/05/19 16:11 09/05/19 16:11 Oxygen Delivery Method Room Air Weight: 190 lb 0.016 oz Body Mass Index (BMI) 21.9 Finger Stick Blood Glucose 116 Code Visit OBSV E&M: 79420 Observation care discharge
[2019-09-05] MEDS: Lisinopril 20 MG Tablet PO (14:25)
[2019-09-05] MEDS: hydrALAZINE 20 MG/ML Vial 10 MG IV (15:45)
== END 2019-09-05 16:25 | disposition home or self-care (01) ==
LOC: ED 15:08 → PCU 09-05 05:49
PROVIDERS: Admitting Provider Family Medicine; Emergency Provider Emergency Medicine; Family Provider Family Medicine; PCP Family Medicine; Referring Provider Family Medicine; Visit Provider Internal Medicine
DX: G45.9 Transient cerebral ischemic attack, unspecified (principal); I16.0 Hypertensive urgency; I10 Essential (primary) hypertension; Z87.891 Personal history of nicotine dependence; Z79.899 Other long term (current) drug therapy; R20.0 Anesthesia of skin
CPT/HCPCS: 36415; 70450; 70496; 70498; 70551; 71045; 80048; 80061; 80307; 82962; 83036; 83735; 84443; 84484; 85025; 85610; 85730; 92610; 93005; 93306; 94762; 96361; 96372; 96374; 96375; 96376; 97162; 97166; 97802; 99218; 99285; J7030; Q9967; A4216; G0378

== ENCOUNTER 2020-03-18 06:30 | Inpatient (IN) | payer OTHER, SELFPAY ==
[2019-09-05 16:35] VITALS: BMI 21.9
[2020-03-18] VITALS (26 sets, daily range): BP systolic 131–196; BP diastolic 82–147; PULSE 54–126; RESP 18–24; TEMP 36.3–36.9; O2SAT 92–99; BMI 25.4; BMI 22.5
--- NOTE | 2020-03-18 06:50 | ED.RN ---
report given to Patti from [facility]
--- NOTE | 2020-03-18 07:13 | EKG12_ITS ---
Test Reason : Blood Pressure : / mmHG Vent. Rate : 095 BPM Atrial Rate : 095 BPM P-R Int : 188 ms QRS Dur : 110 ms QT Int : 402 ms P-R-T Axes : 045 -53 127 degrees QTc Int : 505 ms Normal sinus rhythm Left anterior fascicular block Septal infarct , age undetermined ST & T wave abnormality, consider anterolateral ischemia Prolonged QT Abnormal ECG Confirmed by CORTNEY ALTMAN, ROSEMARY ([id number]), makeup editor JENNI ARTEAGA ([id number]) on 03/22/2020 10:12:58 AM Referred By: SOMMER Confirmed By:ROSEMARY BARR MD
--- NOTE | 2020-03-18 07:14 | ED.VISSUMM ---
- ER Visit Summary Date of Service: 03/18/20 Chief Complaint: Shortness of breath History of Present Illness: The patient is a [address] Costello. He reports that he has had shortness of breath intermittently over the course the past 3 weeks. He states that this began with a pain in his jaw and tightness in his chest that would come on intermittently when he exerted himself. This would last for minutes at a time. He states the pain was 6 out of 10 at worst and is pain-free currently. States that it made him short of breath and diaphoretic. He denies any nausea or vomiting with it. Patient reports that he has been sleeping in a recliner and the past 2 nights he is woken up at 3 or 4:00 in the morning short of breath. This does get better when he stands up. He denies any fever or chills. No cough. He denies sick contacts. 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 Patient has never had a stress test or heart catheterization. He has high blood pressure, family history, and tobacco use (quit 1 year ago) has risk factors for coronary artery disease. Physical Examination: Vitals: Stable. Afebrile. General: Well-nourished and well-developed. Head: Normocephalic atraumatic. Neck: Supple, no lymphadenopathy. No JVD. Nontender. Cardiovascular: Tachycardic regular rhythm. No murmurs. Respiratory: No respiratory distress. Clear to auscultation bilaterally. Abdominal: Soft, nontender, nondistended, normal bowel sounds. No guarding, rebound, or peritoneal signs. Back: Nontender. Extremities: Nontender, no edema. Skin: Normal color, no rash. Neurologic: Alert and oriented ?3. Cranial nerves II through XII are intact. Normal strength and sensation. Psych: Normal affect. Test Results: EKG is sinus at 95 with a left anterior fascicular block. He has new Q waves in leads V2 and V3. There are T wave inversions laterally in leads V4 to V6 and I/aVL. There is minimal ST depression. He has a QTC of 505. These changes are all new from August of last year. CBC is normal. Chem-7 is remarkable for chloride of 108, BUN of 20, glucose of 109. TSH is 0.72. Troponin is 2.25. Clinical Impression(s) from Imaging Studies Chest X-Ray 03/18/20 07:40 IMPRESSION: Emphysema without pneumonia or atelectasis. Electronically Signed: Yoseph Maradiaga MD at 7:56 EDT Tel , Service support , Emergency Department Course and Treatment: Patient had an IV placed. He was given a dose of aspirin p.o. he was given a 4000 unit bolus of heparin and started on a heparin drip. He is resting comfortably and is chest pain-free. Treatment Plan: The patient was discussed with Dr. Salazar and Dr. Uriostegui. He will be admitted to the hospital for further evaluation and treatment. He is made n.p.o. and is going to be taken to the Sales Planning Coordinator this morning. Disposition: Admitted in improved, but serious condition. Impression: 1. Non-ST elevation AR. 2. KENDALL score of 4. 3. Paroxysmal nocturnal dyspnea. 4. History of hypertension. 5. History of tobacco use. 6. Family history of coronary artery disease. 7. Critical care time 33 minutes. This note was generated with [employer] dictation software. It may contain incorrect words, spelling, and punctuation that were not noted in review of the chart prior to signing ED Disposition - Plan for ED Patient: Referrals: Gonzalo Franklin MD [Primary Care Provider] -
[2020-03-18 07:29] LABS: Absolute Lymphocyte Count 1.57 X10^3/uL (0.83-4.51); Absolute Neutrophil Count 5.6 X10^3/uL (2.0-7.7); Basophil# 0.09 X10^3/uL; Basophil% 1.1 % (0-1); Eosinophil# 0.08 X10^3/uL; Hematocrit 43.8 % (40-54); Hemoglobin 14.5 g/dL (13.0-16.5); Lymphocyte # 1.57 X10^3/ul (4.0); Lymphocyte % 19.4 % (19-41); Mean Corp Hgb Conc 33.1 g/dL (32-36); Mean Corpuscular Hgb 27.4 pg (27.0-32.0); Mean Corpuscular Volume 82.6 fL (80-94); Mean Platelet Vol. 9.6 fl (6.2-12.0); Monocyte# 0.71 X10^3/uL; Monocyte% 8.8 % (0-10); NRBC Flagged by Analyzer 0 % (0-5); Neutrophil # 5.62 X10^3/uL (2.7-7.7); Neutrophil % 69.5 % (47-70); Platelet Count 251 K/mm3 (150-450); RBC Distribution Width CV 13.2 % (11.6-14.6); RBC Distribution Width SD 39.4 fl (35.1-43.9); White Blood Count 8.1 K/mm3 (4.4-11.0)
[2020-03-18] MEDS: Aspirin 81 MG TAB.CHEW 324 MG PO (07:31)
--- NOTE | 2020-03-18 07:40 | RAD_ITS ---
STUDY: X-RAY CHEST REASON FOR EXAM: Male, 60 years old. SOB, chest pain TECHNIQUE: Single AP portable view of the chest. COMPARISON: 09/04/2019 FINDINGS: There is hyperinflation of the lungs consistent with chronic obstructive lung disease (COPD). There is no demonstrated pleural abnormality. Normal size heart. Normal mediastinum and shiraz. Normal visualized pulmonary arteries. Normal visualized aortic arch and descending thoracic aorta. Normal visualized thoracic spine. Normal visualized ribs, clavicles, and shoulders. There is no demonstrated abnormality of the visualized soft tissue structures of the upper abdomen. RAD/Chest 1 View (Portable) IMPRESSION: Emphysema without pneumonia or atelectasis. Electronically Signed: Yoseph Maradiaga MD at 7:56 EDT Tel , Service support ,
[2020-03-18 08:01] LABS: Anion Gap 5 (5-15); BUN 20 mg/dL (7-18); BUN/Creat Ratio 16.8 RATIO (10-20); Calcium,Total 8.9 mg/dL (8.5-10.1); Chloride 108 mmol/L (98-107); Creatinine, Serum 1.19 mg/dL (0.70-1.30); EST Glomerular Filtration Rate 66 mL/min (>60); Est Glom Filt Rate - Afr Amer 80 mL/min (>60); Estimated Creatinine Clearance 85.34 ml/min; Glucose 109 mg/dL (74-106); Potassium 3.7 mmol/L (3.5-5.1); Sodium Level 139 mmol/L (136-145); Thyroid Stim Hormone (TSH) 0.72 uIU/mL (0.358-3.74)
[2020-03-18 08:08] LABS: BNP,B-Type NATRIURETIC PEPTIDE 1765.3 pg/mL (0-100)
[2020-03-18] MEDS: Heparin Injection (Vial) 5,000 UNIT/ML VIAL 4000 UNIT IV (08:39)
[2020-03-18 08:47] LABS: Partial Thromboplast Time 28.4 Seconds (24.1-36.2)
[2020-03-18] MEDS: HEPARIN/D5w 25,000 UNITS 25,000 UNITS/250 ML IV.SOLN. 14 UNITS IV (08:48)
--- NOTE | 2020-03-18 09:34 | NURSING ---
Called report to Salma in mini lab operator. Aware of time that heparin gtt was shut off.
[2020-03-18 11:05] LABS: ACT Activated Clotting Time 180 sec (74-137)
--- NOTE | 2020-03-18 11:06 | EKG12_ITS ---
Test Reason : POST PCI Blood Pressure : / mmHG Vent. Rate : 095 BPM Atrial Rate : 095 BPM P-R Int : 178 ms QRS Dur : 108 ms QT Int : 404 ms P-R-T Axes : 031 -60 120 degrees QTc Int : 507 ms Normal sinus rhythm Left anterior fascicular block Anteroseptal infarct , age undetermined ST & T wave abnormality, consider lateral ischemia Prolonged QT Abnormal ECG When compared with ECG of 18-MAR-2020 07:29, MANUAL COMPARISON REQUIRED, DATA IS UNCONFIRMED Confirmed by CHARLES LANDON ([id number]), fan mail editor JENNI ARTEAGA ([id number]) on 03/26/2020 10:37:24 AM Referred By: SILVIA Confirmed By:CHARLES LANDON
--- NOTE | 2020-03-18 11:08 | CL.I_ITS ---
Patient Name: CHRISTIANO HUTCHINS Study Date: 03/18/2020 Performing: Andrea Salazar MD Ht: 78 inches 198 cm : 1960 Wt: 220.8 lbs 100 kg Age: 60 Gender: male BSA: 2.35 PROCEDURE(S) PERFORMED [id number]/COR/LV RH09-EOL W OR WO PTCA, SINGLE CORONARY ARTERY CLINICAL PROFILE AND CO-MORBIDITIES Indications: ACS <= 24 hrs, Other Heart Failure: None Stress/Imaging Stress/Image Study Performed: No CAD Presentations: Non-STEMI. Symptom onset Date/Time: Time Not Available CONCLUSIONS Multivessel CAD as described. Severe LV systolic dysfunction. No significant or MR. Successful PCI of pLAD with BETH. RECOMMENDATIONS ASA Indefinitley Brilinta for at least 12 months Follow up with primary stave hewer Pt. should return for PCI of LCx +/-RCA in 2 weeks DESCRIPTION OF PROCEDURE The patient arrived to the procedure lab. The risks and benefits of the procedure as well as a full d escription of our services here and lack of surgical backup were fully explained to the patient and/o r their significant other prior to the catheterization. The Timeout was completed, verifying the anderson ect patient and procedure. The patient's procedural site was prepped and draped in the usual fashion. Local anesthetic was given subcutaneously to right radial region with Lidocaine 2%. Using a modified Seldinger technique, arterial access was obtained via the right radial artery, a 6Fr sheath was inse rted.. Left Coronary Artery selective angiography was performed in multiple views using a 5 Fr. JL3. 5 catheter. Left Ventriculography was performed in TURNER projection using a 5 Fr. JR4. Right Coronary A rtery selective angiography was then performed in multiple views using a 5 Fr. JR 4 catheterThe image s were reviewed and options discussed. A decision was then made to proceed with an Intervention, IVUS or other adjunct procedure. XB 3.5 Guide catheter was inserted and engaged into the LCA. BMW Guide wire was advanced to the L AD. Angiogram performed. [place] AP inserted Pass # 1 [place] AP Removed Angiogram performed. 3.0x12 Em erge Balloon catheter was advanced across lesion in the LAD, proximal. PTCA balloon inflated at 6 jose s for 10 secs. PTCA balloon inflated at 14 atms for 38 secs. 4.0x12 Synergy Drug Eluting stent was ad vanced across the lesion in the LAD, proximal. Angiogram performed post stent deployment. The arter ial sheath was pulled and a TR Band was applied for hemostasis CORONARY ANGIOGRAPHY DOMINANCE: Right Dominant LEFT HEART ASSESSMENT Left Ventricular Ejection Fraction: by LV Gram 20 % The base of the LV is rao well. Rest of the LV is severely hypokinetic LEFT MAIN: Angiographically normal LEFT ANTERIOR DESCENDING ARTERY: PROX LAD: 100 % Stenosis DISTAL LAD: 60-70 % Stenosis CIRCUMFLEX ARTERY: MID CIRC: 80 % Stenosis RIGHT CORONARY ARTERY: MID RCA: 70-80 % Stenosis VALVE FINDINGS: No Aortic Valve Stenosis No Mitral Insufficency INTERVENTION INFORMATION LESION SITE: LAD (Proximal) Lesion Complexity: High/C, chronic total occlusion: No, lesion at bifurcation: No, thrombus present: Yes, lesion length: 11 mm, culprit lesion: Yes, Previously treated lesion: No Pre Stenosis: 100 % Pre intervention KENDALL flow: 0 PROCEDURE: Drug Eluting Stent with pre dilatation., Thrombectomy Post Stenosis: 0 % Post intervention KENDALL flow: 3 Lesion Devices: Cardinal 6 Fr XB3.5 100cm Guide Catheter [place] .014 BMW [place] Straight 190cm mySkintronic 6 Fr. [place] AP Aspiration Catheter Dwight Sci EMERGE MR 3.00x12 BALLOON Dwight Sci Synergy MR BETH 4.00x12 COMPLICATIONS No Complications PROCEDURE MEDICATIONS Versed 2 mg IV Fentanyl 50 mcg IV Oxygen: 2 L/min via nasal cannula Brilinta 180 mg PO @ 03/18/2020 10:48:23 Heparin given IA 03/18/2020 10:10:04 Heparin 2000 unit(s) IV 03/18/2020 10:31:16 Nitro 100 mcg IC 03/18/2020 10:38:29 Verapamil 2.5mg, Ntg 100mcgs, 3000 units of Heparin given IA 03/18/2020 10:10:04 IV Bolus: .9 NaCl 400 ml total given thru procedure 03/18/2020 10:55:09 IV Fluids: .9 NaCl increased to wide open ml/hr 03/18/2020 10:16:38 SUMMARY OF HEMODYNAMIC DATA Time AIR REST ECG 09:47:44 AO 124/85 (103) SA 10:11:50 LV 142/-9, 15 10:16:52 LV 138/-2, 21 10:17:54 118/87 (103) 10:19:35 Signed By Andrea Salazar MD On 03/18/2020 11:07:29 AM Andrea Salazar MD
[2020-03-18 11:53] LABS: Hemoglobin 14.9 g/dL (13.0-16.5); Mean Corp Hgb Conc 33.1 g/dL (32-36); Mean Corpuscular Hgb 27.4 pg (27.0-32.0); Mean Corpuscular Volume 82.9 fL (80-94); Mean Platelet Vol. 9.9 fl (6.2-12.0); Platelet Count 267 K/mm3 (150-450); RBC Distribution Width CV 13.2 % (11.6-14.6); RBC Distribution Width SD 39.8 fl (35.1-43.9); Red Blood Count 5.43 M/mm3 (4.6-6.2); White Blood Count 11.9 K/mm3 (4.4-11.0)
[2020-03-18] MEDS: Nitroglycerin (INPATIENT USE) 0.4 MG TAB.SUBL SUBLINGUAL (11:56)
[2020-03-18] MEDS: Furosemide 40 MG/4 ML Vial IV (11:59)
[2020-03-18] MEDS: Lisinopril 20 MG Tablet PO (12:01)
[2020-03-18] MEDS: Morphine 2 MG/ML Syringe IV (12:02)
--- NOTE | 2020-03-18 12:17 | PCM.HP.STD ---
<Shyanne Stanford - Last Filed: 03/18/20 12:26> Problem List (1) HTN (hypertension) Status: Chronic (2) TIA (transient ischemic attack) Status: Chronic History of Present Illness Date of Admission: 03/18/20 Chief Complaint: Shortness of breath, chest tightness. The patient is a 60 year old M who presents the emergency room due to shortness of breath and chest tightness. Patient reports shortness of breath has been ongoing for 3 weeks, worsened today. He denies significant chest pressure. Reports chest tightness is minimal and main complaint is shortness of breath. Denies pain radiation down the arm or into the jaw. Denies lightheadedness, dizziness. Denies history of heart disease. He has a history of TIA and hypertension. History of tobacco dependence, quit February 2018. Denies cough, fever, chills. Past Medical History Past Medical History (Chronic Problems): Chronic Problems (Last Updated 03/18/20 @ 13:36 by Zahida Hi) Essential hypertension (Chronic) HTN (hypertension) (Chronic) TIA (transient ischemic attack) (Chronic) Allergies penicillin V potassium [From Pen-Vee K] Allergy (Verified 03/18/20 06:38) Unknown Home Medications: Ambulatory Orders Medication Instructions Recorded Lisinopril 20 mg PO DAILY 09/04/19 Surgical History: - - Open cholecystectomy, tonsillectomy Psychiatric History: No pertinent psych hx Lives: Spouse/ Significant Other Smoking Status: Former smoker Alcohol: None Drugs: None - *Family History Maternal History Items: - - Denies known paternal medical history including cardiac history. Paternal History Items: Heart Disease Review of Systems Constitutional: Denies: Chills, Fever, Weight Change HEENT: Denies: Head Aches, Sinus Congestion, Sinus Drainage Cardiovascular: Reports: Chest Tightness. Denies: Chest Pain, Chest Pressure, Edema, Light Headedness, Syncope Respiratory: Reports: Shortness of Breath. Denies: Cough, Sputum production, Wheezing Gastrointestinal: Denies: Abdominal Pain, Nausea, Vomiting Genitourinary: Denies: Dysuria Musculoskeletal: Denies: Joint Pain, Joint Tenderness Skin: Denies: Rash, Wounds Neurological: Denies: Numbness, Tingling, Focal weakness Psychiatric: Denies: Anxiety, Depression, Homicidal Ideations, Suicidal Ideations Hematologic/ Lymphatic: Denies: Easy Bruising, Easy Bleeding VTE Information - Inpt Only VTE Present on Admission: No VTE Mechan Device Prophylaxis: None VTE Pharm Prophylaxis ordered?: Yes - Physical Exam Vitals/I&O's: Vital Signs Temp Pulse Resp BP Pulse Ox 97.4 F L 126 H 18 179/113 H 92 03/18/20 11:15 03/18/20 11:56 03/18/20 11:30 03/18/20 11:56 03/18/20 11:30 Oxygen Delivery Method Room Air Weight: 220 lb Body Mass Index (BMI) 25.4 Finger Stick Blood Glucose 116 Intake and Output for Last 24 Hours 03/16/20 03/17/20 03/18/20 23:59 23:59 23:59 Intake Total 7.93 / 7.93 Balance 7.93 / 7.93 General: Alert, Oriented x3, Cooperative HEENT: Atraumatic, PERRLA, EOMI, Normocephalic Neck: Supple, No JVD, Negative Carotid Bruits Lungs: Clear to auscultation, Normal air movement Cardiovascular: Regular rate, Regular Rhythm, Normal S1, Normal S2, No murmurs Abdomen: Bowel Sounds Present, Soft, Non Tender, Non-Distended Extremities: No clubbing, No cyanosis, No edema, Capillary Refill Less than 3 Seconds Skin: No rashes, No breakdown Musculoskeletal: No Tenderness to Palpation of Joints or Extremities Neurological: Cranial nerves II-XII grossly intact, Neuro grossly intact Psych/Mental Status: Anxious Laboratory Results 03/18/20 07:21: WBC 8.1, RBC 5.30, Hgb 14.5, Hct 43.8, MCV 82.6, MCH 27.4, MCHC 33.1, RDW Std Deviation 39.4, RDW Coeff of Joe 13.2, Plt Count 251, MPV 9.6, Immature Gran % (Auto) 0.200, Neut % (Auto) 69.5, Lymph % (Auto) 19.4, [place] % (Auto) 8.8, Eos % (Auto) 1.0, Baso % (Auto) 1.1 H, Absolute Neuts (auto) 5.6, Absolute Lymphs (auto) 1.57, Nucleated RBC % 0 03/18/20 07:21: Sodium 139, Potassium 3.7, Chloride 108 H, Carbon Dioxide 26.0, Anion Gap 5, BUN 20 H, Creatinine 1.19, Estim Creat Clear Calc 85.34, Est GFR (MDRD) Af Amer 80, Est GFR (MDRD) Non-Af 66, BUN/Creatinine Ratio 16.8, Glucose 109 H, Calcium 8.9, Troponin I 2.250 H*, TSH 0.72 03/18/20 07:21: B-Natriuretic Peptide 1765.3 H 03/18/20 07:21: APTT 28.4 03/18/20 10:27: Activated Clotting Time 180 H 03/18/20 11:10: Troponin I 3.860 H* 03/18/20 11:45: WBC 11.9 H, RBC 5.43, Hgb 14.9, Hct 45.0, MCV 82.9, MCH 27.4, MCHC 33.1, RDW Std Deviation 39.8, RDW Coeff of Joe 13.2, Plt Count 267, MPV 9.9 Current Medications Acetaminophen (Tylenol) 650 mg PO Q6H PRN PRN PRN Reason: Pain Score 1-10/Temp > 100.7 F Aspirin (Ecotrin) 81 mg PO DAILY@0800 [facility] Atropine Sulfate () 0.5 mg IV UD PRN PRN Reason: HR <50 bpm Dextrose (D50w Syringe) 0 gm IV X1 PRN; Protocol PRN Reason: Hypoglycemia Glucagon () 1 mg IM .X1 PRN PRN Reason: Hypoglycemia Heparin Sodium (Beef Lung) (Heparin 500 Unit/5 Ml (100/Ml)) 500 unit IV UD PRN PRN Reason: HEPARIN FLUSH Heparin Sodium/Dextrose () 25,000 units in 250 mls @ 14 mls/hr IV .[id number] [facility]; Protocol Last Titration: 03/18/20 09:22 Dose: 0 units/hr, 0 mls/hr Documented by: Eptifibatide (Integrilin) 75 mg in 100 mls @ 15.966 mls/hr CONT INF .Q6H16M [facility] Stop: 03/18/20 15:00 Labetalol HCl (Trandate) 5 mg IV X1 PRN PRN Reason: SBP > 160 when pulling sheath Stop: 03/20/20 11:20 Lisinopril (Zestril) 20 mg PO DAILY [facility] Last Admin: 03/18/20 12:01 Dose: 20 mg Documented by: Nitroglycerin (Nitrostat) 0.4 mg SUBLINGUAL Q5M PRN PRN Reason: CARDIAC/CHEST PAIN Last Admin: 03/18/20 11:56 Dose: 0.4 mg Documented by: Ondansetron HCl (Zofran) 4 mg IV Q8H PRN PRN PRN Reason: NAUSEA/VOMITING Sodium Chloride () 500 ml IV BOLUS PRN PRN Reason: VASO-VAGAL PROTOCOL Ticagrelor (Brilinta) 90 mg PO BID [facility] Assessment/Plan All Active Problems (Last Updated 03/18/20 @ 13:36 by Zahida Hi) Atherosclerosis of coronary artery of [place] heart without angina pectoris (Acute) History of coronary artery stent placement (Acute) Tobacco abuse (Resolved) 1. NSTEMI/multivessel CAD s/p PCI of proximal LAD with BETH- Dr. Salazar following. Continue aspirin, Brilinta. Plan for return for PCI of LCx to RCA in 2 weeks. EF 20% noted per cath. Check lipid panel in a.m. 2. Acute heart failure with reduced ejection fraction-EF 20% as noted above. Patient reports increased shortness of breath. BNP 1765. IV Lasix X1. Not noted to be hypoxic. Continue to monitor. 3. Hypertension-blood pressure remains elevated. Possible nitro drip per cardiology if no improvement. Continue lisinopril. 4. History of TIA-continue aspirin. 5. History of tobacco use-encouraged continued cessation. DVT prophylaxis- heparin This patient was seen by KATIE Prince under the supervision of Dr. Uriostegui. <Kade Uriostegui - Last Filed: 03/18/20 14:22> History of Present Illness The patient is a 60 year old M presents with worsening chest pain shortness of breath. Patient was found to have a non-STEMI with a troponin of 2.25. Cardiology was consulted and they have taken to the [facility] [employer]er[employer] Verifier and had a stent placed to his proximal LAD where he had 100% stenosis. Patient was also found to have 80% stenosis of the circumflex and 78% of the right coronary artery. Per cardiology, plan was to dresses at a later point. [] Past Medical History Medical History: Medical History (Last Updated 03/18/20 @ 14:[address] Kade Uriostegui, DO) Essential hypertension (Chronic) I10 Atherosclerosis of coronary artery of [place] heart without angina pectoris (Acute) I25.10 CAD (coronary artery disease) I25.10 TIA (transient ischemic attack) G45.9 HTN (hypertension) I10 Allergies penicillin V potassium [From Pen-Vee K] Allergy (Verified 03/18/20 06:38) Unknown Surgical History: - Psychiatric History: No pertinent psych hx Lives: Spouse/ Significant Other Smoking Status: Former smoker Alcohol: None Drugs: None - *Family History Maternal History Items: - Paternal History Items: Heart Disease Review of Systems Constitutional: Denies: Chills, Fever, Weight Change Cardiovascular: Reports: Chest Pain. Denies: Edema, Light Headedness, Syncope Respiratory: Reports: Shortness of Breath. Denies: Cough, Sputum production, Wheezing Gastrointestinal: Denies: Abdominal Pain, Nausea, Vomiting Genitourinary: Denies: Dysuria Musculoskeletal: Denies: Joint Pain, Joint Tenderness Skin: Denies: Rash, Wounds Neurological: Denies: Focal weakness, Numbness, Tingling Psychiatric: Denies: Anxiety, Depression, Homicidal Ideations, Suicidal Ideations Hematologic/ Lymphatic: Denies: Easy Bruising, Easy Bleeding VTE Information - Inpt Only VTE Present on Admission: No VTE Mechan Device Prophylaxis: None VTE Pharm Prophylaxis ordered?: Yes - Physical Exam Vitals/I&O's: Vital Signs Temp Pulse Resp BP Pulse Ox 36.3 C L 99 20 H 153/102 H 97 03/18/20 11:15 03/18/20 14:06 03/18/20 14:06 03/18/20 14:06 03/18/20 14:06 Oxygen Flow Rate (L/min) 2 Oxygen Delivery Method Nasal Cannula Weight: 99.79 kg Body Mass Index (BMI) 22.5 Finger Stick Blood Glucose 116 Intake and Output for Last 24 Hours 03/16/20 03/17/20 03/18/20 23:59 23:59 23:59 Intake Total 117.93 / 117.93 Output Total 800 / 800 Balance -682.07 / -682.07 General: Alert, Oriented x3, Cooperative HEENT: Atraumatic, Normocephalic Lungs: Clear to auscultation, Normal air movement Cardiovascular: Regular rate, Regular Rhythm, Normal S1, Normal S2, No murmurs Abdomen: Bowel Sounds Present, Soft, Non Tender, Non-Distended Extremities: No edema, No Calf Tenderness Skin: No rashes, No breakdown Neurological: Cranial nerves II-XII grossly intact, Neuro grossly intact Psych/Mental Status: Appropriate, Anxious Laboratory Results 03/18/20 07:21: WBC 8.1, RBC 5.30, Hgb 14.5, Hct 43.8, MCV 82.6, MCH 27.4, MCHC 33.1, RDW Std Deviation 39.4, RDW Coeff of Joe 13.2, Plt Count 251, MPV 9.6, Immature Gran % (Auto) 0.200, Neut % (Auto) 69.5, Lymph % (Auto) 19.4, [place] % (Auto) 8.8, Eos % (Auto) 1.0, Baso % (Auto) 1.1 H, Absolute Neuts (auto) 5.6, Absolute Lymphs (auto) 1.57, Nucleated RBC % 0 03/18/20 07:21: Sodium 139, Potassium 3.7, Chloride 108 H, Carbon Dioxide 26.0, Anion Gap 5, BUN 20 H, Creatinine 1.19, Estim Creat Clear Calc 85.34, Est GFR (MDRD) Af Amer 80, Est GFR (MDRD) Non-Af 66, BUN/Creatinine Ratio 16.8, Glucose 109 H, Calcium 8.9, Troponin I 2.250 H*, TSH 0.72 03/18/20 07:21: B-Natriuretic Peptide 1765.3 H 03/18/20 07:21: APTT 28.4 03/18/20 10:27: Activated Clotting Time 180 H 03/18/20 11:10: Troponin I 3.860 H* 03/18/20 11:45: WBC 11.9 H, RBC 5.43, Hgb 14.9, Hct 45.0, MCV 82.9, MCH 27.4, MCHC 33.1, RDW Std Deviation 39.8, RDW Coeff of Joe 13.2, Plt Count 267, MPV 9.9 03/18/20 13:42: Troponin I Pending Current Medications Acetaminophen (Tylenol) 650 mg PO Q6H PRN PRN PRN Reason: Pain Score 1-10/Temp > 100.7 F Aspirin (Ecotrin) 81 mg PO DAILY@0800 [facility] Atropine Sulfate () 0.5 mg IV UD PRN PRN Reason: HR <50 bpm Dextrose (D50w Syringe) 0 gm IV X1 PRN; Protocol PRN Reason: Hypoglycemia Glucagon () 1 mg IM .X1 PRN PRN Reason: Hypoglycemia Heparin Sodium (Beef Lung) (Heparin 500 Unit/5 Ml (100/Ml)) 500 unit IV UD PRN PRN Reason: HEPARIN FLUSH Eptifibatide (Integrilin) 75 mg in 100 mls @ 15.966 mls/hr CONT INF .Q6H16M [facility] Stop: 03/18/20 15:00 Labetalol HCl (Trandate) 5 mg IV X1 PRN PRN Reason: SBP > 160 when pulling sheath Stop: 03/20/20 11:20 Lisinopril (Zestril) 20 mg PO DAILY [facility] Last Admin: 03/18/20 12:01 Dose: 20 mg Documented by: Metoprolol Succinate (Toprol Xl (Beta Kareem)) 50 mg PO DAILY [facility] Metoprolol Succinate (Toprol Xl (Beta Kareem)) 50 mg PO X1 ONE Stop: 03/18/20 14:10 Nitroglycerin (Nitrostat) 0.4 mg SUBLINGUAL Q5M PRN PRN Reason: CARDIAC/CHEST PAIN Last Admin: 03/18/20 11:56 Dose: 0.4 mg Documented by: Ondansetron HCl (Zofran) 4 mg IV Q8H PRN PRN PRN Reason: NAUSEA/VOMITING Sodium Chloride () 500 ml IV BOLUS PRN PRN Reason: VASO-VAGAL PROTOCOL Sodium Chloride () 10 - 40 ml IV UD PRN PRN Reason: SALINE FLUSH Ticagrelor (Brilinta) 90 mg PO BID [facility] Assessment/Plan Patient seen and examined independently. Data reviewed. I agree with the above note by the nurse practitioner. 1. Non-ST ovation myocardial infarction Patient had 1% stenosis of the LAD which he had a stent placed at that time. Patient to continue with aspirin, ticagrelor. Patient will follow-up with cardiology for intervention of the circumflex and RCA lesions. Continue with lisinopril, metoprolol succinate. 2. Ischemic cardiomyopathy: EF 20%. Patient received a one-time dose of furosemide. Management per cardiology. 3. Hypertension, accelerated: Improved. Continue with the lisinopril, metoprolol succinate. 4. VTE prophylaxis: Enoxaparin. 5. Advanced care planning: Patient wishes to be full CODE STATUS. Inpatient E&M: [id number] Init Hosp L3
--- NOTE | 2020-03-18 13:09 | CRPH1.INST_ITS ---
General Education CAD and cardiac anatomy and function:: Needs reinforcement Explanation of diagnoses and procedures:: Needs reinforcement Sign/Symptoms of AR:: Needs reinforcement Antiplatelet therapy: Needs reinforcement Proper use of NTG-SL: Needs reinforcement Emergency procedures and activation of EMS: Needs reinforcement Compliance of all prescribed medications: Needs reinforcement Smoking Patient Nicotine/Smoking Risk Factors Are:: Non-smoker Recommendations Include:: Previous smoker; encourage continued cessation Nicotine/Smoking Response Code:: Needs reinforcement Dyslipidemia Patient Dyslipidemia Risk Factors Are:: Total Cholesterol - 137 09/05/2019, HDL - 38, LDL - 84 Recommendations Include:: Lipid profile provided Dyslipidemia Response Code:: Not instructed Overweight/Obesity Patient Overweight/Obesity Risk Factors Are:: BMI Normal [18-25 & < 65 years old] Recommendations Include:: Reduced calorie diet, Exercise 5-7 times/week Overweight/Obesity:: Needs reinforcement Hypertension Recommendations Include:: Maintain BP <130/85, DASH dietary guidelines, Decreas e/maintain normal body weight, Moderation of ETOH Hypertension:: Needs reinforcement Heart Disease Patient Heart Disease Risk Factors Are:: Family history of heart disease < 65 years old Heart Disease Response Code:: Needs reinforcement Diabetes Patient Diabetes Risk Factors Are:: No documented hx of diabetes Diabetes:: Needs reinforcement Metabolic Syndrome Patient Metabolic Syndrome Risk Factors Are [3 of 5]:: Hypertension, Low HDL <40 [male] or < 50 [female] Metabolic Syndrome Response Code:: Not instructed Sedentary Patient Sedentary Risk Factors Are:: Lack of regular exercise Recommendations Include:: Discussed home walking program, Monitored Outpatient Cardiac Rehab Sedentary Response Code:: Needs reinforcement Stress Stress Response Code:: Not instructed
--- NOTE | 2020-03-18 13:15 | CRPHASE1 ---
Patient Communication PHII Cardiac Rehab Discussed with Patient:: Yes Guide to Cardiac Rehab Given to Patient:: Yes Cardiac Rehab Facility Choice List Given to Patient:: Yes - considering [facility] Other:: Communication Given to CR, With permission faxed order and referral information School Psychological Examiner:: Johann Salazar Sessions:: 36 sessions - 3 days/wk, 12 weeks Risk Factors/Lifestyle Smoking Status: Former smoker Hx Hypertension: Yes Height: 6 ft 6 in Weight:: 99.79 kg BMI: 25.4 Family History: Heart Disease, Hypertension, Stroke Phase I Education Given On:: [place] Issues Affecting Care:: None Knowledge of Condition:: Yes Hospital Course Presenting Symptoms:: Jaw/chest tightness w/exertion, assoc w/sob. Pain Description: Tightness Date/LVF/EF:: 03/18/20 - EF 20% Cardiac Cath Date:: 03/18/20 LAD:: S/P PTCA, Stent Medical/Surgical History CO:: Yes - NSTEMI Angina:: Yes CAD:: Yes COPD:: Yes Hypertension:: Yes PTCA:: Yes - 03/18/2020 LAD Discharge/Home/Social Eval Discharge Disposition: Home Cardiac Rehabilitation Info Cardiac Rehabilitation Program Information: Cardiac Rehabilitation is important for patients like you who are recovering from a heart problem. Cardiac rehabilitation programs are recognized as integral to the continued care of the patient with coronary heart disease. The cardiac rehabilitation program is designed to optimize a patient's physical, psychological, and social functioning. Health senior caregiver work in cardiac rehabilitation programs and assist you with getting the treatments you need to get stronger and healthier - like exercise, healthy eating habits, and medications. Cardiac rehabilitation has been show to help people with heart problems live longer and have better life enjoyment than people who do not go to cardiac rehabilitation. Please contact the Cardiac Rehabilitation Program at [facility] at in two weeks if you have not heard from them.
--- NOTE | 2020-03-18 14:46 | PCM.CONS.C ---
Reason for Consult Date of Consultation: 03/18/20 History of Present Illness: The patient is a 60 year old M who presents the emergency room due to shortness of breath and chest tightness. Patient reports shortness of breath has been ongoing for 3 weeks, worsened today. He denies significant chest pressure. Reports chest tightness is minimal and main complaint is shortness of breath. Denies pain radiation down the arm or into the jaw. Denies lightheadedness, dizziness. Denies history of heart disease. He has a history of TIA and hypertension. History of tobacco dependence, quit February 2018. Denies cough, fever, chills. Patient's troponin was elevated. Patient was evaluated and subsequently taken to the [facility] for coronary angiography which revealed 100% occlusion of the LAD that was treated with thrombectomy and drug-eluting stent placement. He does have residual stenosis in the circumflex and RCA that will be treated at a later date. Patient was also found to have an EF of 20% on LV gram. View of systems: All systems reviewed. All else is negative except in HPI Past Medical History Allergies/Adverse Reactions: Allergies penicillin V potassium [From Pen-Vee K] Allergy (Verified 03/18/20 06:38) Unknown Home Medications: Ambulatory Orders Medication Instructions Recorded Lisinopril 20 mg PO DAILY 09/04/19 Past Medical History (Chronic Problems): Chronic Problems (Last Updated 03/18/20 @ 14:[address] Kade Uriostegui, DO) HTN (hypertension) (Chronic) TIA (transient ischemic attack) (Chronic) Essential hypertension (Chronic) Surgical History: - Psychiatric History: No pertinent psych hx - *Family History Maternal History Items: - Paternal History Items: Heart Disease Lives: Spouse/ Significant Other Smoking Status: Former smoker Alcohol: None Drugs: None Objective: Vital Signs Temp Pulse Resp BP Pulse Ox 97.4 F L 99 20 H 153/102 H 97 03/18/20 11:15 03/18/20 14:06 03/18/20 14:06 03/18/20 14:06 03/18/20 14:06 Oxygen Flow Rate (L/min) 2 Oxygen Delivery Method Nasal Cannula Weight: 220 lb Body Mass Index (BMI) 22.5 Finger Stick Blood Glucose 116 Intake and Output for Last 24 Hours 03/16/20 03/17/20 03/18/20 23:59 23:59 23:59 Intake Total 117.93 / 117.93 Output Total 800 / 800 Balance -682.07 / -682.07 General: Awake, Alert, Oriented x 3 HEENT: Atraumatic Oral: Moist Mucosa Neck: Supple Lungs: Rales - Janak Bases Cardiovascular: Regular Rhythm Abdomen: Soft Extremities: No edema Skin: No Rashes Psych/Mental Status: Appropriate 03/18/20 07:21: WBC 8.1, RBC 5.30, Hgb 14.5, Hct 43.8, MCV 82.6, MCH 27.4, MCHC 33.1, Plt Count 251, MPV 9.6, Immature Gran % (Auto) 0.200, Neut % (Auto) 69.5, Lymph % (Auto) 19.4, [place] % (Auto) 8.8, Eos % (Auto) 1.0, Baso % (Auto) 1.1 H, Absolute Neuts (auto) 5.6, Nucleated RBC % 0 03/18/20 07:21: Sodium 139, Potassium 3.7, Chloride 108 H, Carbon Dioxide 26.0, Anion Gap 5, BUN 20 H, Creatinine 1.19, Est GFR (MDRD) Af Amer 80, Est GFR (MDRD) Non-Af 66, BUN/Creatinine Ratio 16.8, Glucose 109 H, Calcium 8.9, Troponin I 2.250 H* 03/18/20 07:21: B-Natriuretic Peptide 1765.3 H 03/18/20 07:21: APTT 28.4 03/18/20 11:10: Troponin I 3.860 H* 03/18/20 11:45: WBC 11.9 H, RBC 5.43, Hgb 14.9, Hct 45.0, MCV 82.9, MCH 27.4, MCHC 33.1, Plt Count 267, MPV 9.9 03/18/20 13:42: Troponin I 9.430 H* Rhythm: EKG: ECHO: Stress Test: Cardiac Cath: PCI: CT Surgery: Holter monitor: EPS: PPM: CXR: Chest CT Scan: Assessment/Plan 1. Non-STEMI: Patient was treated with thrombectomy and drug-eluting stent placement to the LAD. Please keep the patient on aspirin, Brilinta, Lipitor, lisinopril and Toprol-XL or Coreg. He will need staged PCI of the circumflex plus or minus RCA in about 2 weeks. 2. LV dysfunction: Patient has an EF of around 20% on LV gram. He will need an EF assessment 3 months from his last PCI to see if he would need an AICD. At this time keep the patient on lisinopril and a beta-jania. We had to give him 1 dose of IV Lasix after the cardiac cath as patient went into pulmonary edema.
[2020-03-18] MEDS: 0.9% Saline Lock 10 ML Syringe IV (15:40)
[2020-03-18] MEDS: Metoprolol(XL)Succ 50 MG Tablet PO (15:41)
--- NOTE | 2020-03-18 17:01 | NURSING ---
1148: patient recently returned from cardiac catheterization. Reports complaints of acute shortness of breath without chest pain. Vitals obtained and patient placed on 2L/NC oxygen. Radial site observed. No active bleeding noted. Femoral Pulses strong. Dr. Salazar on unit and asked to see patient. Dr. Salazar at bedside to see patient. New orders received. Morphine, Nitro x1, and IV Lasix given per Dr. Salazar order. Patient became diaphoretic. Cool compresses applied. Vitals obtained. Dr. Salazar remained at bedside for several minutes. Patient improved after about 15 minutes. Continue to monitor.
--- NOTE | 2020-03-18 17:47 | EKG12_ITS ---
Test Reason : AM EKG Blood Pressure : / mmHG Vent. Rate : 070 BPM Atrial Rate : 070 BPM P-R Int : 174 ms QRS Dur : 110 ms QT Int : 514 ms P-R-T Axes : 024 -55 211 degrees QTc Int : 555 ms Normal sinus rhythm Left anterior fascicular block Septal infarct , age undetermined ST & Marked T-wave abnormality, consider inferolateral ischemia Prolonged QT Abnormal ECG Confirmed by CHARLES LANDON ([id number]), editorial writer JENNI ARTEAGA ([id number]) on 03/26/2020 10:37:52 AM Referred By: ZACK Confirmed By:CHARLES LANDON
[2020-03-18] MEDS: Acetaminophen 325 MG Tablet 650 MG PO (20:30)
[2020-03-18] MEDS: Atorvastatin Calcium 40 MG Tablet PO (22:09)
[2020-03-18] MEDS: TICAGRELOR 90 MG TABLET PO (22:09)
[2020-03-19] VITALS (9 sets, daily range): BP systolic 99–140; BP diastolic 66–87; PULSE 76–87; RESP 14–22; TEMP 36.4–37; O2SAT 93–98
--- NOTE | 2020-03-19 03:48 | RAD_ITS ---
STUDY: X-RAY CHEST REASON FOR EXAM: Male, 60 years old. Shortness of breath TECHNIQUE: Single AP portable view of the chest. 2 images COMPARISON: March 18, 2020. 09/04/2019 FINDINGS: There are superimposed monitor leads. Possible left gynecomastia. There is hyperinflation of the lungs consistent with chronic obstructive lung disease (COPD). There are small calcified nodule in the right upper lung periphery. Interstitial prominence with bronchial cuffing in the lateral mid lung and lung bases unchanged since previous examination with reticulonodular densities in the right base. There is no demonstrated pleural abnormality. Normal size heart. Normal mediastinum and shiraz. Normal visualized pulmonary arteries. Normal visualized aortic arch and descending thoracic aorta. Normal visualized thoracic spine. Normal visualized ribs, clavicles, and shoulders. There is no demonstrated abnormality of the visualized soft tissue structures of the upper abdomen. RAD/Chest 1 View (Portable) IMPRESSION: Interstitial inflammation superimposed on COPD, possible infiltrate/pneumonia unchanged since most recent examination, new since previous examination 2018. Follow-up examination to resolution of nodular densities in the right base recommended. Electronically Signed: Mary Lea MD at 4:47 EDT , Service support ,
[2020-03-19 04:39] LABS: Hematocrit 45.6 % (40-54); Hemoglobin 15.4 g/dL (13.0-16.5); Mean Corp Hgb Conc 33.8 g/dL (32-36); Mean Corpuscular Volume 82.9 fL (80-94); Mean Platelet Vol. 9.9 fl (6.2-12.0); Platelet Count 289 K/mm3 (150-450); RBC Distribution Width CV 13.2 % (11.6-14.6); RBC Distribution Width SD 38.9 fl (35.1-43.9); White Blood Count 11.2 K/mm3 (4.4-11.0)
[2020-03-19 04:55] LABS: ALB/GLOB Ratio 0.9 RATIO (0.9-2.4); AST(SGOT) 33 U/L (15-37); Alanine Aminotransfer ALT/SGPT 20 U/L (16-61); Albumin, Serum 3.4 g/dL (3.2-5.0); Alkaline Phosphatase 111 U/L (45-117); Anion Gap 7 (5-15); BUN 17 mg/dL (7-18); Calcium,Total 8.7 mg/dL (8.5-10.1); Chloride 104 mmol/L (98-107); Cholesterol 133 mg/dL (200); Creatinine, Serum 1.21 mg/dL (0.70-1.30); EST Glomerular Filtration Rate 65 mL/min (>60); Est Glom Filt Rate - Afr Amer 79 mL/min (>60); Estimated Creatinine Clearance 83.93 ml/min; Globulin 3.8 g/dL (2.2-4.2); Glucose 121 mg/dL (74-106); High Density Lipoprotein 36 mg/dL; Potassium 3.7 mmol/L (3.5-5.1); Protein, Total 7.2 g/dL (6.4-8.2); Sodium Level 137 mmol/L (136-145); Triglycerides 90 mg/dL; Very Low Density Lipoprotein 18 mg/dL (5-40)
[2020-03-19] MEDS: Enoxaparin 40 MG/0.4 ML Syringe SC (06:48)
[2020-03-19] MEDS: Aspirin E.C. 81 MG Tablet PO (08:17)
[2020-03-19] MEDS: Lisinopril 20 MG Tablet PO (08:18)
[2020-03-19] MEDS: TICAGRELOR 90 MG TABLET PO (08:18)
[2020-03-19] MEDS: Metoprolol(XL)Succ 50 MG Tablet PO (08:20)
--- NOTE | 2020-03-19 10:00 | EKG12_ITS ---
Test Reason : RHYTHM Blood Pressure : / mmHG Vent. Rate : 106 BPM Atrial Rate : 106 BPM P-R Int : 176 ms QRS Dur : 112 ms QT Int : 420 ms P-R-T Axes : 064 -47 133 degrees QTc Int : 557 ms Sinus tachycardia Left anterior fascicular block Anteroseptal infarct , age undetermined T wave abnormality, consider lateral ischemia Prolonged QT Abnormal ECG When compared with ECG of 18-MAR-2020 11:25, MANUAL COMPARISON REQUIRED, DATA IS UNCONFIRMED Confirmed by CHARLES LANDON ([id number]), pictures editor JENNI ARTEAGA ([id number]) on 03/26/2020 10:37:40 AM Referred By: SILVIA Confirmed By:CHARLES LANDON
--- NOTE | 2020-03-19 11:25 | CASEMGMT ---
RN SHELLEY Face to Face with patient for initial transition planning/care coordination assessment. RN CM introduced self and role at [facility]. Patient lying in bed, alert and oriented. Patient willing to participate in assessment and is able to answer all questions appropriately. Care providers, pharmacy, and demographics verified. Patient wishes to discharge home, denies need for home health at this time. Patient states he has no further needs or concerns at this time. CM to follow for discharge planning needs that may arise. PCP: Rigoberto Specialists: None Preferred Pharmacy: [facility] Insurance: MMO Prescription Benefit: yes, savings card for Brilinta given to patient Living Will/HPOA: none LNOK: Living Arrangements: Patient is living alone in 1 story home with 4 steps and railing to enter the home. Patient states he is independent Transportation: Self, DME/HHC: Patient denies need for DME or HHC. Disposition Plan: Patient to discharge home with family support and follow-up plans in place. Margarette CALIX, RN, CM
--- NOTE | 2020-03-19 12:22 | PCM.PN.CARD ---
Subjectve: Patient is doing well. He had some mild shortness of breath this morning. This was at rest. He did ambulate and did not have significant shortness of breath with ambulation. Objective: Vital Signs Temp Pulse Resp BP Pulse Ox 98.0 F 76 16 118/73 96 03/19/20 09:25 03/19/20 11:00 03/19/20 09:25 03/19/20 09:25 03/19/20 10:20 Oxygen Flow Rate (L/min) 2 Oxygen Delivery Method Nasal Cannula Weight: 190 lb 7.67 oz Body Mass Index (BMI) 22.5 Finger Stick Blood Glucose 116 Intake and Output for Last 24 Hours 03/17/20 03/18/20 03/19/20 23:59 23:59 23:59 Intake Total 597.93 / 597.93 240 / 240 Output Total 3600 / 3600 200 / 200 Balance -3002.07 / -3002.07 40 / 40 General: Awake, Alert, Oriented x 3 HEENT: Atraumatic Oral: Moist Mucosa Neck: Supple, No JVD Cardiovascular: Regular Rhythm Abdomen: Soft Extremities: No edema Skin: No Rashes Psych/Mental Status: Appropriate 03/18/20 13:42: Troponin I 9.430 H* 03/19/20 04:32: Sodium 137, Potassium 3.7, Chloride 104, Carbon Dioxide 26.0, Anion Gap 7, BUN 17, Creatinine 1.21, Est GFR (MDRD) Af Amer 79, Est GFR (MDRD) Non-Af 65, BUN/Creatinine Ratio 14.0, Glucose 121 H, Calcium 8.7, Total Bilirubin 2.00 H, Triglycerides 90, Cholesterol 133, LDL Cholesterol 79, VLDL Cholesterol 18, HDL Cholesterol 36 L 03/19/20 04:32: WBC 11.2 H, RBC 5.50, Hgb 15.4, Hct 45.6, MCV 82.9, MCH 28.0, MCHC 33.8, Plt Count 289, MPV 9.9 03/19/20 04:32: Magnesium 2.0 Rhythm: EKG: ECHO: Stress Test: Cardiac Cath: PCI: CT Surgery: Holter monitor: EPS: PPM: CXR: Chest CT Scan: Medical Necessity - Tobacco Use Smoking Status: Former smoker Assessment/Plan 1. Non-STEMI: Patient was treated with thrombectomy and drug-eluting stent placement to the LAD. Please keep the patient on aspirin, Brilinta, Lipitor, lisinopril and Toprol-XL or Coreg. He will need staged PCI of the circumflex plus or minus RCA in about 2 weeks. 2. LV dysfunction: Patient has an EF of around 20% on LV gram. He will need an EF assessment 3 months from his last PCI to see if he would need an AICD. At this time keep the patient on lisinopril and a beta-jania. We had to give him 1 dose of IV Lasix after the cardiac cath as patient went into pulmonary edema. Patient responded well to treatment so far. Continue current medications at this time. If he does well overnight he could potentially be discharged home tomorrow. If he has further shortness of breath it would be reasonable to start him on Lasix 40 mg p.o. daily prior to discharge with CMP to be checked in 1 week. Some of the shortness of breath could also be related to Brilinta. I did explain to the patient that will be reasonable for him to continue the Brilinta at this time and if it ends up being intolerable then we can consider switching to Plavix.
--- NOTE | 2020-03-19 14:05 | DCINST_ITS ---
You will use the following diet at home:: Cardiac Your food should be the consistency of: Regular Your liquids should be the consistency of: Regular/Thin Discharge Activity: Return to Normal Activity Call your doctor if you observe: Fever of 101 or Higher, Shortness of breath, Dizziness, Fainting spells, Swelling in the ankles, Chest pain, Increased palpitations (irregular heartbeat) Allergies/Adverse Reactions: Allergies penicillin V potassium [From Pen-Vee K] Allergy (Verified 03/18/20 06:38) Unknown Medications to take at Discharge Lisinopril 20 mg PO DAILY 09/04/19 Aspirin E.C. [Ecotrin] 81 mg PO DAILY@0800 #60 tab 03/19/20 Atorvastatin Calcium [Lipitor] 40 mg PO QHS #60 tab 03/19/20 Metoprolol(XL)Succ [Toprol Xl (Beta Kareem)] 50 mg PO DAILY #60 tab 03/19/20 Ticagrelor [Brilinta] 90 mg PO BID #120 tab 03/19/20 The following prescriptions were given: Ticagrelor [Brilinta] 90 mg PO BID #120 tab Transmission Status: Pending to [facility] Aspirin E.C. [Ecotrin] 81 mg PO DAILY@0800 #60 tab Transmission Status: Pending to [facility] Atorvastatin Calcium [Lipitor] 40 mg PO QHS #60 tab Transmission Status: Pending to [facility] Metoprolol(XL)Succ [Toprol Xl (Beta Kareem)] 50 mg PO DAILY #60 tab Transmission Status: Pending to [facility] Primary Care Physician: Gonzalo Franklin MD [Primary Care Provider] - Please follow up with your Primary Care Physician in: 1-2 weeks Test Results: Test results from this visit will be discussed in further detail at your follow- up appointment, if applicable. Please Follow Up With: Johann Salazar MD When: 2 weeks Please Follow Up With: Kimani Rothman MD When: 2-4 weeks
--- NOTE | 2020-03-19 15:52 | PCM.DC.SUM ---
Discharge Date and Diagnosis Date of Admission: 03/18/20 Date of Discharge: 03/19/20 - Secondary Discharge Diagnosis Chronic Problems (Last Updated 03/18/20 @ 14:[address] Kade Uriostegui, DO) HTN (hypertension) (Chronic) TIA (transient ischemic attack) (Chronic) Essential hypertension (Chronic) Hospital Course and Treatment Imaging Results: CXR: IMPRESSION: Emphysema without pneumonia or atelectasis. PROCEDURE(S) PERFORMED [id number]/LV [id number] W OR WO PTCA, SINGLE CORONARY ARTERY CLINICAL PROFILE AND CO-MORBIDITIES Indications: ACS <= 24 hrs, Other Heart Failure: None Stress/Imaging Stress/Image Study Performed: No CAD Presentations: Non-STEMI. Symptom onset Date/Time: Time Not Available CONCLUSIONS Multivessel CAD as described. Severe LV systolic dysfunction. No significant or MR. Successful PCI of pLAD with BETH. RECOMMENDATIONS ASA Indefinitley Brilinta for at least 12 months Follow up with primary risk adjustment specialist Pt. should return for PCI of LCx +/-RCA in 2 weeks Consults: Cardiology Operations: None Procedures: Cardiac catheterization Summary of Care Provided: Per HPI: The patient is a 60 year old M who presents the emergency room due to shortness of breath and chest tightness. Patient reports shortness of breath has been ongoing for 3 weeks, worsened today. He denies significant chest pressure. Reports chest tightness is minimal and main complaint is shortness of breath. Denies pain radiation down the arm or into the jaw. Denies lightheadedness, dizziness. Denies history of heart disease. He has a history of TIA and hypertension. History of tobacco dependence, quit February 2018. Denies cough, fever, chills. Hospital Course: 1. Non-STEMI/ischemic cardiomyopathy with [id number]-old male who presented to the hospital with shortness of breath and chest tightness for last 3 weeks was found to be having a non-STEMI. He has been waking up for the last 2 nights at 3 or 4 in the morning and was having shortness of breath. In the ER he had a troponin of 2.25 with T wave inversion in the lateral leads, the troponin reached 9.43. He was taken to the [facility] and he had a drug-eluting stent placed on the day of admission in the proximal LAD which had about 100% occlusion the distal LAD is 60 to 70% occluded, the circumflex has an 80% stenosis in the mid RCA has a 70 to 80% stenosis. He tolerated the first stent well but continues to have shortness of breath. Chest x-ray demonstrates that he likely has COPD given his previous history of tobacco use. He says that he did quit about a year ago. He will continue medical therapy with aspirin and Brilinta as well as a statin, and will need to follow-up with cardiology as an outpatient in about 2 weeks. He will likely need 2 more stents placed. Also he will need an outpatient echo to follow-up any recovery in his reduced ejection fraction of 20%. I also discussed with him the need to follow-up with pulmonology as an outpatient for evaluation of his COPD at the very least to have pulmonary function test and decide if he needs to be on inhalers or not. At the moment is unclear whether or not his shortness of breath is secondary to COPD versus heart failure. On exam he did not have any wheezing to indicate a COPD exacerbation. He also had an ambulatory pulse ox done the day of discharge and he did not require any home O2. The discharge plan was discussed with him and he expressed understanding of the risks and benefits. - Physical Exam Vitals/I&O's: Vital Signs Temp Pulse Resp BP Pulse Ox 97.6 F L 81 14 99/66 94 03/19/20 14:38 03/19/20 14:38 03/19/20 14:38 03/19/20 14:38 03/19/20 14:38 Oxygen Flow Rate (L/min) 2 Oxygen Delivery Method Room Air Weight: 190 lb 7.67 oz Body Mass Index (BMI) 22.5 Finger Stick Blood Glucose 116 Intake and Output for Last 24 Hours 03/17/20 03/18/20 03/19/20 23:59 23:59 23:59 Intake Total 597.93 / 597.93 840 / 840 Output Total 3600 / 3600 200 / 200 Balance -3002.07 / -3002.07 640 / 640 General: Alert, Oriented x3, Cooperative, No apparent distress HEENT: Atraumatic, PERRLA, EOMI, Normocephalic Oral: Moist Mucosa Neck: Supple, No JVD Lungs: Clear to auscultation, Normal air movement, No rhonchi, No wheeze, No rales, Diminished Cardiovascular: Regular rate, Regular Rhythm, Normal S1, Normal S2, No murmurs Abdomen: Soft, Non Tender, Non-Distended, No Hepato-splenomegaly Extremities: No edema, Capillary Refill Less than 3 Seconds Skin: No rashes, No breakdown Neurological: Neuro grossly intact, Sensory exam intact to light touch and pain Psych/Mental Status: Normal Affect, Appropriate Laboratory Results 03/19/20 04:32: Sodium 137, Potassium 3.7, Chloride 104, Carbon Dioxide 26.0, Anion Gap 7, BUN 17, Creatinine 1.21, Estim Creat Clear Calc 83.93, Est GFR (MDRD) Af Amer 79, Est GFR (MDRD) Non-Af 65, BUN/Creatinine Ratio 14.0, Glucose 121 H, Calcium 8.7, Total Bilirubin 2.00 H, AST 33, ALT 20, Alkaline Phosphatase 111, Total Protein 7.2, Albumin 3.4, Globulin 3.8, Albumin/Globulin Ratio 0.9, Triglycerides 90, Cholesterol 133, LDL Cholesterol 79, VLDL Cholesterol 18, HDL Cholesterol 36 L 03/19/20 04:32: WBC 11.2 H, RBC 5.50, Hgb 15.4, Hct 45.6, MCV 82.9, MCH 28.0, MCHC 33.8, RDW Std Deviation 38.9, RDW Coeff of Joe 13.2, Plt Count 289, MPV 9.9 03/19/20 04:32: Magnesium 2.0 Discharge Activity: Return to Normal Activity Call your doctor if you observe: Fever of 101 or Higher, Shortness of breath, Dizziness, Fainting spells, Swelling in the ankles, Chest pain, Increased palpitations (irregular heartbeat) Home Medications: Medications to take at Discharge Lisinopril 20 mg PO DAILY 09/04/19 Aspirin E.C. [Ecotrin] 81 mg PO DAILY@0800 #60 tab 03/19/20 Atorvastatin Calcium [Lipitor] 40 mg PO QHS #60 tab 03/19/20 Metoprolol(XL)Succ [Toprol Xl (Beta Kareem)] 50 mg PO DAILY #60 tab 03/19/20 Ticagrelor [Brilinta] 90 mg PO BID #120 tab 03/19/20 Following Prescrptions Were Given to Patient: Ticagrelor [Brilinta] 90 mg PO BID #120 tab Transmission Status: Received by [facility] Aspirin E.C. [Ecotrin] 81 mg PO DAILY@0800 #60 tab Transmission Status: Received by [facility] Atorvastatin Calcium [Lipitor] 40 mg PO QHS #60 tab Transmission Status: Received by [facility] Metoprolol(XL)Succ [Toprol Xl (Beta Kareem)] 50 mg PO DAILY #60 tab Transmission Status: Received by [facility] Primary Care Physician: Gonzalo Franklin MD [Primary Care Provider] - Please follow up with your Primary Care Physician in: 1-2 weeks Please Follow Up With: Johann Salazar MD When: 2 weeks Please Follow Up With: Kimani Rothman MD When: 2-4 weeks Disposition: Home Minutes spent on discharge:: 35 Patient Condition:: Stable Medical Necessity - Tobacco Use Smoking Status: Former smoker Meaningful Use Info Meaningful Use Diagnoses (Choose all that apply): AMI, CHF - AMI/Post PCI/Angioplasty Aspirin given w/in 24hrs of arrival?: Yes ASA at discharge?: Yes Statins at discharge?: Yes Rudy/ARB at discharge?: Yes Beta Kareem at discharge?: Yes Done w/ Acute NC measure.: Yes Documented LVEF (%): 20 - CHF RUDY/ARB ordered at discharge?: Yes Documented LVEF (%): 20 Inpatient E&M: 12018 Disch Hosp
== END 2020-03-19 15:29 | disposition home or self-care (01) | DRG 246 ==
LOC: ED 07:31 → PCU 10:14
PROVIDERS: Hospitalist; Specialist; Emergency Provider Emergency Medicine; PCP Family Medicine; Visit Provider Family Medicine
DX: I21.4 Non-ST elevation (NSTEMI) myocardial infarction (principal); I50.21 Acute systolic (congestive) heart failure; I11.0 Hypertensive heart disease with heart failure; I25.5 Ischemic cardiomyopathy; I25.10 Atherosclerotic heart disease of native coronary artery without angina pectoris; J44.9 Chronic obstructive pulmonary disease, unspecified; Z79.82 Long term (current) use of aspirin; Z79.899 Other long term (current) drug therapy; Z87.891 Personal history of nicotine dependence; Z86.73 Personal history of transient ischemic attack (TIA), and cerebral infarction without residual deficits
CPT/HCPCS: 36415; 71045; 80048; 80053; 80061; 83735; 83880; 84443; 84484; 85025; 85027; 85347; 85730; 92928; 93005; 93458; 96360; 99152; 99153; 99285; J7040; Q9967; A4216; C1725; C1757; C1769; C1874; C1887; C1894; C9600; J1327; J1940

== ENCOUNTER 2020-04-01 09:13 | Day surgery (SDC) | payer OTHER, SELFPAY ==
[2020-03-18 12:19] VITALS: BMI 22.5
[2020-03-18 13:26] VITALS: BMI 25.4
[2020-03-31 13:37] VITALS: BMI 26.1
[2020-03-31 13:42] VITALS: BMI 25.4
[2020-04-01] VITALS (18 sets, daily range): BP systolic 110–144; BP diastolic 65–92; PULSE 59–81; RESP 16–18; TEMP 36.6–37.2; O2SAT 96–98; BMI 25.4
--- NOTE | 2020-04-01 11:35 | PCM.DC.CCA ---
<Jose Alberto Groves - Last Filed: 04/01/20 12:04> Discharge Diet: Low fat/ Low Cholesterol Discharge Activity: Return to Normal Activity May shower in (days): 1 - no tub baths for 5 days May resume sexual activity in: 1-2 weeks Lifting Restrictions: Do not lift anything greater than 10 pounds for 3 days Call your doctor if your incision/area has: Continuous Slow Oozing, Sudden Increased Bleeding, Increased Pain/ Swelling, Increased Redness, Foul Smelling Discharge, Swelling at the incision site Call your doctor if you observe: Fever of 101 or Higher, Shortness of breath, Chest pain Remove Dressing in (days):: 1 Cleanse incision/area with: Soap & Water Additional Instructions: You will continue with Aspirin and Brilinta therapy. The goal is to remain on Aspirin and Brilinta therapy together for at least one year. If anyone asks you to stop your Brilinta, please call the [facility] Office at [phone]. To help with insomnia your Lipitor/Atorvastatin will be changed to a statin/cholesterol lower medication called Crestor 20mg. Please take this pill daily at night. This has been sent to [facility] for a 90 day supply. We will follow lipids and liver function on a routine basis. You will be contacted by the [facility] to schedule an appointment to evaluate overall progress. This will be in about 4 weeks. At that time will assess readiness for cardiac rehab. If you have any questions or concerns, please call the [facility] at [phone]. Allergies/Adverse Reactions: Allergies penicillin V potassium [From Ryan-Velyric Osman] Allergy (Verified 03/18/20 06:38) Unknown Medications to take at Discharge Lisinopril 20 mg PO DAILY 09/04/19 Aspirin E.C. [Ecotrin] 81 mg PO DAILY@0800 #60 tab 03/19/20 Ticagrelor [Brilinta] 90 mg PO BID #120 tab 03/19/20 carvedilol 3.125 mg tablet 3.125 mg PO BID #180 tab 03/24/20 rosuvastatin 20 mg tablet 20 mg PO DAILY #90 tab 04/01/20 The following prescriptions were given: rosuvastatin 20 mg tablet 20 mg PO DAILY #90 tab Transmission Status: Received by [facility] Primary Care Physician: Gonzalo Franklin MD [Primary Care Provider] - Test Results: Test results from this visit will be discussed in further detail at your follow-up appointment, if applicable. Please Follow Up With: [facility] will contact to schedule Proposed Discharge Date: 04/02/20 Cardiac Rehabilitation Info Cardiac Rehabilitation Program Information: Cardiac Rehabilitation is important for patients like you who are recovering from a heart problem. Cardiac rehabilitation programs are recognized as integral to the continued care of the patient with coronary heart disease. The cardiac rehabilitation program is designed to optimize a patient's physical, psychological, and social functioning. Health career development associate work in cardiac rehabilitation programs and assist you with getting the treatments you need to get stronger and healthier - like exercise, healthy eating habits, and medications. Cardiac rehabilitation has been show to help people with heart problems live longer and have better life enjoyment than people who do not go to cardiac rehabilitation. Please contact the Cardiac Rehabilitation Program at [facility] at in two weeks if you have not heard from them. <Ruby Nieto - Last Filed: 04/02/20 09:23> Return to work on:: 04/07/20 Test Results: Test results from this visit will be discussed in further detail at your follow-up appointment, if applicable. Cardiac Rehabilitation Info Cardiac Rehabilitation Program Information: Cardiac Rehabilitation is important for patients like you who are recovering from a heart problem. Cardiac rehabilitation programs are recognized as integral to the continued care of the patient with coronary heart disease. The cardiac rehabilitation program is designed to optimize a patient's physical, psychological, and social functioning. Health career development associate work in cardiac rehabilitation programs and assist you with getting the treatments you need to get stronger and healthier - like exercise, healthy eating habits, and medications. Cardiac rehabilitation has been show to help people with heart problems live longer and have better life enjoyment than people who do not go to cardiac rehabilitation. Please contact the Cardiac Rehabilitation Program at [facility] at in two weeks if you have not heard from them.
--- NOTE | 2020-04-01 11:47 | PCM.PN.BLA ---
Progress Note Patient will discharged on the following medications: Aspirin 81mg PO Daily Coreg 3.125mg PO BID Lisinopril 20mg PO Daily Crestor 20mg PO Daily Brilinta 90mg PO BID
--- NOTE | 2020-04-01 12:00 | EKG12_ITS ---
Test Reason : POST PCI Blood Pressure : / mmHG Vent. Rate : 072 BPM Atrial Rate : 072 BPM P-R Int : 190 ms QRS Dur : 100 ms QT Int : 444 ms P-R-T Axes : 039 -57 132 degrees QTc Int : 486 ms Normal sinus rhythm Left anterior fascicular block Septal infarct (cited on or before 18-MAR-2020) ST & T wave abnormality, consider anterolateral ischemia Abnormal ECG When compared with ECG of 19-MAR-2020 04:57, Serial changes of Septal infarct Present Confirmed by SCOTT ALTMAN, JAZMINE ([id number]), assignment editor JENNI ARTEAGA ([id number]) on 04/07/2020 10:33:38 AM Referred By: Johann Salazar Confirmed By:JAZMINE CHAVEZ MD
[2020-04-01] MEDS: 0.9% Normal Saline 1,000 ML 60 ML IV (12:21)
--- NOTE | 2020-04-01 14:32 | CL.I_ITS ---
Patient Name: CHRISTIANO HUTCHINS Study Date: 04/01/2020 Performing: Andrea Salazar MD Ht: 78 inches 198 cm : 1960 Wt: 220.8 lbs 100 kg Age: 60 Gender: male BSA: 2.35 PROCEDURE(S) PERFORMED [id number] W OR WO PTCA, SINGLE CORONARY ARTERY [id number] W OR WO PTCA, SINGLE CORONARY ARTERY CLINICAL PROFILE AND CO-MORBIDITIES Indications: Other. Planned PCI of known signficant CAD Heart Failure: None Stress/Imaging Stress/Image Study Performed: No CAD Presentations: Other: unstable angina CONCLUSIONS Successful BETH to mRCA and mLCx RECOMMENDATIONS Follow up with primary adapted physical education specialist JACQUELYN Turk for at least 12 months DESCRIPTION OF PROCEDURE The patient arrived to the procedure lab. The risks and benefits of the procedure as well as a full d escription of our services here and current unavailability of surgical backup were fully explained to the patient and/or their significant other prior to the catheterization. The Timeout was completed, verifying the correct patient and procedure. The patient's procedural site was prepped and draped in the usual fashion. Local anesthetic was given subcutaneously to right radial region with Lidocaine 2% . Using a modified Seldinger technique, arterial access was obtained via the right radial artery, a 6 Fr sheath was inserted.. 6F [place] Guide catheter was inserted and engaged into the RCA. BMW Guide wire was advanced to the RCA. Angiogram performed pre balloon dilatation. Emerge 3.0x15 Balloon catheter was advanced across lesion in the right coronary, mid. PTCA balloon inflated at 8 atms for 16 secs. Synergy 4.0x28 Drug E luting stent was advanced across the lesion in the right coronary, mid. Angiogram performed pre stent deployment. Angiogram performed post stent deployment. 6F XB 3.5 Guide catheter was inserted and eng aged into the LCA. BMW Guide wire was advanced to the Circumflex. Angiogram performed pre balloon dil atation. Synergy 2.5x16 Drug Eluting stent was advanced across the lesion in the circumflex, mid. Ang iogram performed post stent deployment. Angiogram performed post stent deployment. The arterial arndt th was pulled and a TR Band was applied for hemostasis, 10cc of air placed in the band INTERVENTION INFORMATION LESION SITE: RCA (Mid) Lesion Complexity: High/C, chronic total occlusion: No, lesion at bifurcation: No, thrombus present: No, lesion length: 25 mm, culprit lesion: Yes, Previously treated lesion: No Pre Stenosis: 80 % Pre intervention KENDALL flow: 3 PROCEDURE: Drug Eluting Stent with pre dilatation. Post Stenosis: 0 % Post intervention KENDALL flow: 3 Lesion Devices: Terumo 6 Fr Tig 4.0 100cm Guide Catheter Ashby .014 BMW [place] Straight 190cm Dwight Sci EMERGE MR 3.00x15 BALLOON Dwight Sci Synergy MR BETH 4.00x28 LESION SITE: Circumflex (Mid) Lesion Complexity: High/C, chronic total occlusion: No, lesion at bifurcation: Yes, thrombus present: No, lesion length: 11 mm, culprit lesion: Yes, Previously treated lesion: No Pre Stenosis: 90 % Pre intervention KENDALL flow: 3 PROCEDURE: Drug Eluting Stent Post Stenosis: 0 % Post intervention KENDALL flow: 3 Lesion Devices: Ashby .014 BMW [place] Straight 190cm Cardinal 6 Fr XB3.5 100cm Guide Catheter Dwight Sci Synergy MR BETH 2.50x16 COMPLICATIONS No Complications PROCEDURE MEDICATIONS Versed 1 mg IV Fentanyl 50 mcg IV Versed 1 mg IV Oxygen: 2 L/min via nasal cannula Heparin given IA 04/01/2020 10:49:33 Heparin 4000 unit(s) IV 04/01/2020 10:50:51 Verapamil 2.5mg, Ntg 100mcgs, 3000 units of Heparin given IA 04/01/2020 10:49:33 SUMMARY OF HEMODYNAMIC DATA Time AIR REST ECG 09:37:12 AO 105/69 (86) SA 10:57:34 AO 108/64 (83) 11:02:56 AO 118/69 (90) 11:07:52 Signed By Andrea Salazar MD On 04/01/2020 14:31:33 Andrea Salazar MD
[2020-04-01] MEDS: TICAGRELOR 90 MG TABLET PO (21:38)
[2020-04-01] MEDS: Carvedilol 3.125 MG TABLET PO (21:38)
[2020-04-02 03:00] VITALS: PULSE 76
[2020-04-02 03:01] VITALS: BP 128/88; PULSE 77; RESP 16; TEMP 36.2; O2SAT 97
[2020-04-02 03:10] VITALS: RESP 16
[2020-04-02 06:50] LABS: Hematocrit 41.1 % (40-54); Mean Corp Hgb Conc 34.1 g/dL (32-36); Mean Corpuscular Hgb 28.2 pg (27.0-32.0); Mean Corpuscular Volume 82.7 fL (80-94); Mean Platelet Vol. 9.9 fl (6.2-12.0); Platelet Count 210 K/mm3 (150-450); RBC Distribution Width CV 13.4 % (11.6-14.6); RBC Distribution Width SD 39.8 fl (35.1-43.9); Red Blood Count 4.97 M/mm3 (4.6-6.2); White Blood Count 8.1 K/mm3 (4.4-11.0)
[2020-04-02 07:00] VITALS: PULSE 82
[2020-04-02 07:21] LABS: ALB/GLOB Ratio 0.9 RATIO (0.9-2.4); AST(SGOT) 19 U/L (15-37); Alanine Aminotransfer ALT/SGPT 21 U/L (16-61); Albumin, Serum 3.2 g/dL (3.2-5.0); Alkaline Phosphatase 101 U/L (45-117); Anion Gap 7 (5-15); BUN 15 mg/dL (7-18); Calcium,Total 8.6 mg/dL (8.5-10.1); Chloride 110 mmol/L (98-107); Creatinine, Serum 1.07 mg/dL (0.70-1.30); EST Glomerular Filtration Rate 75 mL/min (>60); Est Glom Filt Rate - Afr Amer 91 mL/min (>60); Estimated Creatinine Clearance 93.04 ml/min; Globulin 3.7 g/dL (2.2-4.2); Glucose 100 mg/dL (74-106); Potassium 4.2 mmol/L (3.5-5.1); Protein, Total 6.9 g/dL (6.4-8.2); Sodium Level 140 mmol/L (136-145)
[2020-04-02 07:30] VITALS: O2SAT 94
--- NOTE | 2020-04-02 07:57 | CRPHASE1 ---
Patient Communication Former Patient:: Phase I - Patieint had previous stent done on 03/18/2020. PHII Cardiac Rehab Discussed with Patient:: Yes Guide to Cardiac Rehab Given to Patient:: Yes Cardiac Rehab Facility Choice List Given to Patient:: Yes Choice Program [facility] [place] PHII:: Communication Given to CR, Refer to [facility] [employer] Program Coordinator:: Johann Salazar Refer Phase II Cardiac Rehab:: Yes Sessions:: 36 sessions - 3 days/wk, 12 weeks Cardiac Rehabilitation Info Cardiac Rehabilitation Program Information: Cardiac Rehabilitation is important for patients like you who are recovering from a heart problem. Cardiac rehabilitation programs are recognized as integral to the continued care of the patient with coronary heart disease. The cardiac rehabilitation program is designed to optimize a patient's physical, psychological, and social functioning. Health customer care assistant work in cardiac rehabilitation programs and assist you with getting the treatments you need to get stronger and healthier - like exercise, healthy eating habits, and medications. Cardiac rehabilitation has been show to help people with heart problems live longer and have better life enjoyment than people who do not go to cardiac rehabilitation. Please contact the Cardiac Rehabilitation Program at [facility] at in two weeks if you have not heard from them.
--- NOTE | 2020-04-02 07:58 | CRPH1.INSTRU ---
General Education CAD and cardiac anatomy and function:: Not instructed Explanation of diagnoses and procedures:: Not instructed Sign/Symptoms of SC:: Not instructed Antiplatelet therapy: Not instructed Proper use of NTG-SL: Not instructed Emergency procedures and activation of EMS: Not instructed Compliance of all prescribed medications: Not instructed - Patient previosuly seen by CR and educated on 03/18/2020
[2020-04-02 09:18] VITALS: BP 130/75; PULSE 76; RESP 14; TEMP 36.8; O2SAT 96
[2020-04-02] MEDS: Lisinopril 20 MG Tablet PO (09:20)
[2020-04-02] MEDS: TICAGRELOR 90 MG TABLET PO (09:20)
[2020-04-02] MEDS: Carvedilol 3.125 MG TABLET PO (09:20)
[2020-04-02] MEDS: Aspirin E.C. 81 MG Tablet PO (09:20)
--- NOTE | 2020-04-02 10:00 | EKG12_ITS ---
Test Reason : ROUTINE Blood Pressure : / mmHG Vent. Rate : 076 BPM Atrial Rate : 076 BPM P-R Int : 184 ms QRS Dur : 110 ms QT Int : 444 ms P-R-T Axes : 051 -54 143 degrees QTc Int : 499 ms Normal sinus rhythm Left anterior fascicular block Septal infarct , age undetermined ST & Marked T wave abnormality, consider anterolateral ischemia Abnormal ECG When compared with ECG of 01-APR-2020 11:49, MANUAL COMPARISON REQUIRED, DATA IS UNCONFIRMED Confirmed by SCOTT ALTMAN, JAZMINE ([id number]), business editor JENNI ARTEAGA ([id number]) on 04/05/2020 3:38:31 PM Referred By: Johann Salazar Confirmed By:JAZMINE CHAVEZ MD
== END 2020-04-02 09:22 | disposition home or self-care (01) ==
LOC: CLSP 09:15 → PCU 04-02 08:15
PROVIDERS: PCP Family Medicine; Referring Provider Specialist; Visit Provider Specialist
DX: I25.10 Atherosclerotic heart disease of native coronary artery without angina pectoris (principal); I25.2 Old myocardial infarction; I11.0 Hypertensive heart disease with heart failure; I50.21 Acute systolic (congestive) heart failure; Z86.73 Personal history of transient ischemic attack (TIA), and cerebral infarction without residual deficits; Z95.5 Presence of coronary angioplasty implant and graft; Z79.82 Long term (current) use of aspirin; Z79.899 Other long term (current) drug therapy; Z87.891 Personal history of nicotine dependence
CPT/HCPCS: 36415; 80053; 85027; 92928; 93005; 99152; 99153; J7030; J7040; Q9967; C1725; C1769; C1874; C1887; C1894; C9600

== ENCOUNTER 2020-06-10 07:25 | Emergency (ER) | payer OTHER, SELFPAY ==
[2020-03-18 13:26] VITALS: BMI 25.4
[2020-04-01 11:54] VITALS: BMI 25.4
[2020-06-10 07:26] VITALS: BP 167/99; PULSE 86; RESP 18; TEMP 36.6; O2SAT 99; BMI 23.1
--- NOTE | 2020-06-10 07:31 | ED.RN ---
0750--pt to room ekg called
--- NOTE | 2020-06-10 07:36 | ED.RN ---
numbness in left last 2 fingers
--- NOTE | 2020-06-10 07:41 | RAD_ITS ---
STUDY: X-RAY CHEST REASON FOR EXAM: Male, 60 years old. NUMBNESS LEFT HAND TECHNIQUE: Single AP portable view of the chest. COMPARISON: Comparison is made with prior examination March 19, 2020. FINDINGS: EKG electrodes are seen. Hyperinflation. The lungs are clear. There is no demonstrated pleural abnormality. Normal size heart. Normal mediastinum and shiraz. Normal visualized pulmonary arteries. There is atherosclerotic calcification of the aortic arch with tortuosity. Normal visualized thoracic spine. Normal visualized ribs, clavicles, and shoulders. There is no demonstrated abnormality of the visualized soft tissue structures of the upper abdomen. RAD/Chest 1 View (Portable) IMPRESSION: Hyperinflation. Electronically Signed: Shayan Chou, at 8:17 EDT , Service support ,
--- NOTE | 2020-06-10 07:41 | EKG12_ITS ---
Test Reason : L ARM NUMBNESS Blood Pressure : / mmHG Vent. Rate : 077 BPM Atrial Rate : 077 BPM P-R Int : 200 ms QRS Dur : 098 ms QT Int : 426 ms P-R-T Axes : 042 -47 102 degrees QTc Int : 482 ms Normal sinus rhythm Left anterior fascicular block Septal infarct , age undetermined ST & T wave abnormality, consider anterolateral ischemia Abnormal ECG Confirmed by SCOTT ALTMAN, JAZMINE ([id number]), book editor ANNE-MARIE PINON ([id number]) on 06/14/2020 10:57:33 AM Referred By: SOMMER Confirmed By:JAZMINE CHAVEZ MD
[2020-06-10 07:43] VITALS: O2SAT 100
[2020-06-10] MEDS: Aspirin 81 MG TAB.CHEW 324 MG PO (07:46)
[2020-06-10 07:47] LABS: Absolute Lymphocyte Count 1.86 X10^3/uL (0.83-4.51); Absolute Neutrophil Count 5.7 X10^3/uL (2.0-7.7); Basophil# 0.07 X10^3/uL; Basophil% 0.8 % (0-1); Eosinophil# 0.31 X10^3/uL; Eosinophils% 3.4 % (0-5); Hematocrit 47.4 % (40-54); Hemoglobin 15.8 g/dL (13.0-16.5); Lymphocyte # 1.86 X10^3/ul (4.0); Lymphocyte % 20.7 % (19-41); Mean Corp Hgb Conc 33.3 g/dL (32-36); Mean Corpuscular Hgb 28.1 pg (27.0-32.0); Mean Corpuscular Volume 84.3 fL (80-94); Mean Platelet Vol. 9.8 fl (6.2-12.0); Monocyte# 1.01 X10^3/uL; Monocyte% 11.2 % (0-10); NRBC Flagged by Analyzer 0 % (0-5); Neutrophil % 63.3 % (47-70); Platelet Count 236 K/mm3 (150-450); RBC Distribution Width SD 42.7 fl (35.1-43.9); Red Blood Count 5.62 M/mm3 (4.6-6.2)
--- NOTE | 2020-06-10 07:48 | ED.DCSUM_ITS ---
- ER Visit Summary Date of Service: 06/10/20 Chief Complaint: Left hand numbness History of Present Illness: The patient is a [address] Franklin and Dr. Salazar. He reports that he woke up this morning and his left fourth and fifth fingers are numb. He is left-hand dominant. He denies any other paresthesias. He denies any weakness. No vertigo or slurred speech. No problems with his balance. Patient reports that yesterday morning he did have an episode of chest pain while he was at rest. It is a sharp pain just inferior to his left pectoralis major that lasted approximately 2 hours. It was 8 of 10 at worst. He is pain- free currently. There was no change with exertion. It was decreased with laying down in his chair. He denies any associated nausea, vomiting, shortness of breath, or diaphoresis. Physical Examination: Vitals: Stable. Afebrile. General: Well-nourished and well-developed. Head: Normocephalic atraumatic. Neck: Supple, no lymphadenopathy. No JVD. Nontender. Cardiovascular: Regular rate and rhythm. No murmurs. Respiratory: No respiratory distress. Clear to auscultation bilaterally. Abdominal: Soft, nontender, nondistended, normal bowel sounds. No guarding, rebound, or peritoneal signs. Back: Nontender. Extremities: Nontender, no edema. Decreased sensation to light touch in his left fourth and fifth fingers in an ulnar distribution. He has no pain over the left elbow. He has a 2+ radial pulse bilaterally. Skin: Normal color, no rash. Neurologic: Alert and oriented ?3. Cranial nerves II through XII are intact. Normal strength and sensation. Psych: Normal affect. Test Results: EKG is normal sinus rhythm at a rate of 77 with a left anterior fascicular block. There are nonspecific ST changes. Is unchanged from April 022019. CBC shows monocytes of 11. Chem-7 shows a glucose 123, 319, creatinine 1.35. Troponin 0 0.024. Chest x-ray shows chronic changes. Emergency Department Course and Treatment: Patient was treated with aspirin. He is resting comfortably. Treatment Plan: Patient was reassured. I do had a prolonged discussion with him about the possibility of cubital tunnel syndrome. Be discharged with instructions to follow-up with Dr. louise in 1 week if this is not improving. Is instructed take NSAIDs for that. Follow-up with Dr. Franklin for repeat evaluation of his chest pain. Return to the emergency department for any worsening symptoms. Disposition: To home in improved and stable condition. Impression: 1. Atypical chest pain. 2. Ulnar nerve paresthesias on left. This note was generated with [employer] dictation software. It may contain incorrect words, spelling, and punctuation that were not noted in review of the chart prior to signing ED Disposition - Plan for ED Patient: Disposition: Home or Assisted Living Instructions: ED PERIPHERAL NEUROPATHY Referrals: Gonzalo Franklin MD [Primary Care Provider] - 3-5 Days if not improving Johann Salazar MD [STAFF PHYSICIAN] - Keep Rex appointment
[2020-06-10 08:07] LABS: Anion Gap 4 (5-15); BUN 19 mg/dL (7-18); BUN/Creat Ratio 14.1 RATIO (10-20); Calcium,Total 9.2 mg/dL (8.5-10.1); Chloride 107 mmol/L (98-107); Creatinine, Serum 1.35 mg/dL (0.70-1.30); EST Glomerular Filtration Rate 57 mL/min (>60); Est Glom Filt Rate - Afr Amer 69 mL/min (>60); Estimated Creatinine Clearance 74.67 ml/min; Glucose 123 mg/dL (74-106); Potassium 4.1 mmol/L (3.5-5.1); Sodium Level 139 mmol/L (136-145)
[2020-06-10 08:25] VITALS: BP 149/97; PULSE 75; RESP 16; O2SAT 99
[2020-06-10 09:15] VITALS: BP 150/94; PULSE 71; RESP 13; O2SAT 98
== END 2020-06-10 09:25 | disposition home or self-care (01) ==
LOC: ED 07:52
PROVIDERS: Emergency Provider Emergency Medicine; PCP Family Medicine
DX: R07.89 Other chest pain (principal); R20.2 Paresthesia of skin; I44.4 Left anterior fascicular block; I10 Essential (primary) hypertension; I25.10 Atherosclerotic heart disease of native coronary artery without angina pectoris; E78.00 Pure hypercholesterolemia, unspecified; Z79.82 Long term (current) use of aspirin; Z79.899 Other long term (current) drug therapy
CPT/HCPCS: 71045; 80048; 84484; 85025; 93005; 99285; A4216

== ENCOUNTER → 2020-07-22 13:04 | Outpatient (CLI) | payer OTHER, SELFPAY ==
[2020-03-18 13:26] VITALS: BMI 25.4
--- NOTE | 2020-07-22 13:05 | ECHOCS_ITS ---
Reason For Study: LV Dysfunction, Reassess EF Procedure This was a 2D Doppler, Color Flow transthoracic echocardiogram. Exam performed in department. Left Ventricle Normal LV size. The estimated ejection fraction is 30 %. Stage 1 diastolic dysfunction. There is severe global hypokinesis of the left ventricle. Right Ventricle Normal RV size. Normal systolic function. Atria Normal left atrium. Normal right atrium. No doppler evidence for ASD. Mitral Valve There is no mitral valve stenosis. No mitral valve insufficiency. Tricuspid Valve There is no tricuspid stenosis. Unable to estimate RV systolic pressure due to insufficient tricuspid regurgitant envelope. Trivial tricuspid valve insufficiency. Aortic Valve Trisinus/trileaflet aortic valve. Moderate diffuse aortic valve thickening. There is no aortic stenosis. Mild (1+) aortic valve insufficiency. Pulmonic Valve There is no pulmonic valvular stenosis. No pulmonic valve insufficiency. Great Vessels Normal aortic root. Pericardium/Pleural No pericardial effusion. Medication Diluted definity 4.5ml given slow IV push to enhance endocardial definition. MMode/2D Measurements & Calculations LVIDd: 5.4 cm IVSd: 1.2 cm Ao root diam: 3.5 cm LVIDs: 4.4 cm LVPWd: 1.3 cm RVDd: 3.5 cm FS: 17.6 % LAV(MOD-bp): 34.2 ml LVAd ap4: 40.4 cm2 SV(MOD-sp4): 37.2 ml LAV(MOD-bp) Indexed: 15.2 ml/m2 EDV(MOD-sp4): 141.6 ml LAV(MOD-sp2): 38.1 ml EDV(sp4-el): 149.5 ml LAV(MOD-sp4): 33.1 ml LVAs ap4: 33.7 cm2 ESV(MOD-sp4): 104.4 ml ESV(sp4-el): 107.3 ml EF(MOD-sp4): 26.3 % EF(sp4-el): 28.2 % SV(sp4-el): 42.2 ml LA A4 area: 13.9 cm2 LA dimension(2D): 3.8 cm RA A4 area: 11.4 cm2 Doppler Measurements & Calculations MV E max cliffodr: 37.8 cm/sec Lat Peak E' Clifford: 4.1 cm/sec Med Peak E' Clifford: 2.8 cm/sec MV A max clifford: 88.0 cm/sec E/E' lat: 9.3 E/E' med: 13.3 MV E/A: 0.43 Ao V2 max: 105.7 cm/sec AI max clifford: 373.0 cm/sec LV V1 max: 80.4 cm/sec Ao max P.5 mmHg AI max P.6 mmHg LV V1 max P.6 mmHg Ao V2 mean: 77.9 cm/sec Ao mean P.6 mmHg AI dec slope: 222.2 cm/sec2 Ao V2 VTI: 19.2 cm AI P1/2t: 491.5 msec PA V2 max: 71.2 cm/sec Interpretation Summary The estimated ejection fraction is 30 %. Stage 1 diastolic dysfunction. There is severe global hypokinesis of the left ventricle. Mild (1+) aortic valve insufficiency. The study was technically difficult. Contrast injection was performed. Ordering Physician: Johann Salazar Referring Physician: Gonzalo Franklin Performed By: Chanelle Groves, GLADIS, RVT
== END ==
PROVIDERS: PCP Family Medicine; Referring Provider Specialist; Visit Provider Specialist
DX: I25.10 Atherosclerotic heart disease of native coronary artery without angina pectoris (principal); I11.9 Hypertensive heart disease without heart failure; Z95.5 Presence of coronary angioplasty implant and graft
CPT/HCPCS: 93306; Q9957; A4216; C8929

== ENCOUNTER 2020-09-25 23:15 | Emergency (ER) | payer OTHER, SELFPAY ==
[2020-03-18 13:26] VITALS: BMI 25.4
[2020-09-25 23:16] VITALS: BP 163/93; PULSE 96; RESP 36; TEMP 38; O2SAT 97; BMI 23.1
[2020-09-25 23:23] VITALS: BP 163/93; PULSE 96; RESP 36; TEMP 38; O2SAT 97
[2020-09-25 23:35] VITALS: O2SAT 96
--- NOTE | 2020-09-25 23:38 | RAD_ITS ---
HISTORY: C/O congestion and cough for a few days. EXAMINATION/TECHNIQUE: XR Chest 1 View: Portable upright COMPARISON: 06/10/2020 FINDINGS: Cardiac telemetry leads in place. Normal heart size. Upper lobe mild emphysema. No acute infiltrate. No vascular congestion or pleural effusion. No pneumothorax. RAD/Chest 1 View (Portable) IMPRESSION: 1. No acute cardiopulmonary disease. No significant change. 2. Mild emphysema. at 0029 Reported and signed by: Duc Guerrero MD Electronically Signed: Duc Guerrero, at 0:28 EDT Tel , Service support ,
[2020-09-25 23:50] LABS: Absolute Lymphocyte Count 1.66 X10^3/uL (0.83-4.51); Absolute Neutrophil Count 7.2 X10^3/uL (2.0-7.7); Basophil# 0.08 X10^3/uL; Basophil% 0.8 % (0-1); Eosinophil# 0.16 X10^3/uL; Eosinophils% 1.5 % (0-5); Hematocrit 45.1 % (40-54); Hemoglobin 14.5 g/dL (13.0-16.5); Lymphocyte # 1.66 X10^3/ul (4.0); Mean Corp Hgb Conc 32.2 g/dL (32-36); Mean Corpuscular Hgb 27.2 pg (27.0-32.0); Mean Corpuscular Volume 84.6 fL (80-94); Mean Platelet Vol. 9.7 fl (6.2-12.0); Monocyte# 1.29 X10^3/uL; Monocyte% 12.4 % (0-10); NRBC Flagged by Analyzer 0 % (0-5); Neutrophil # 7.15 X10^3/uL (2.7-7.7); Platelet Count 204 K/mm3 (150-450); Red Blood Count 5.33 M/mm3 (4.6-6.2); White Blood Count 10.4 K/mm3 (4.4-11.0)
[2020-09-25 23:57] LABS: Anion Gap 5 (5-15); BUN 17 mg/dL (7-18); BUN/Creat Ratio 12.4 RATIO (10-20); Calcium,Total 8.8 mg/dL (8.5-10.1); Chloride 111 mmol/L (98-107); Creatinine, Serum 1.37 mg/dL (0.70-1.30); EST Glomerular Filtration Rate 56 mL/min (>60); Est Glom Filt Rate - Afr Amer 68 mL/min (>60); Estimated Creatinine Clearance 73.58 ml/min; Glucose 118 mg/dL (74-106); Sodium Level 139 mmol/L (136-145)
--- NOTE | 2020-09-26 01:03 | ED.DCSUM_ITS ---
- ER Visit Summary Date of Service: 09/26/20 Chief Complaint: Upper respiratory infection History of Present Illness: The patient is a 60 M who presents with head cold symptoms for the past 2 days. Patient states he feels congested in his head. Patient states he has taken Afrin which helps. Patient denies any fevers or chills. Patient states he started with a sore throat and has now progressed to nasal congestion. Patient denies any rhinorrhea. Patient denies any shortness of breath or cough. Patient denies any chest pain or palpitations. Patient states he has been isolating himself at home. Patient denies any sick contacts. Patient denies any loss of taste or smell. Physical Examination: Vital signs are stable except for mild tachypnea of 36. Patient is afebrile. Patient is in no acute distress. Oral mucosa is pink and moist. Neck is supple. Trachea is midline. There is no JVD noted. Heart was regular rate and rhythm. Lungs are clear and equal bilaterally. Abdomen is soft. Bowel sounds are normal. There is no tenderness. There is no rebound or guarding noted. Skin is warm dry. Cranial nerves II through XII are intact. There are no focal motor or sensory deficits noted. Extremities are intact. There is no calf tenderness or edema. Test Results: CBC and basic metabolic profile were obtained were within normal limits. Portable chest x-ray was obtained. There are chronic changes of mild emphysema. There is no acute cardiopulmonary process. This was interpreted by the radiologist and reviewed by myself. Emergency Department Course and Treatment: Patient was feeling better on reevaluation. Patient was given an albuterol inhaler. A send out Covid test was obtained. Patient was instructed to follow-up with his primary care physician in 3 to 5 days. Patient understood and was agreeable with the plan. All questions were answered. Disposition: Discharge home Impression: Viral upper respiratory infection This note was generated with [employer] dictation software. It may contain incorrect words, spelling, and punctuation that were not noted in review of the chart prior to signing ED Disposition - Plan for ED Patient: Disposition: Home or Assisted Living Diagnosis: Viral upper respiratory infection Instructions: ED URI Viral Referrals: Gonzalo Franklin MD [Primary Care Provider] - 3-5 Days
[2020-09-26 01:12] VITALS: BP 157/69; PULSE 72; RESP 16; O2SAT 97
== END 2020-09-26 01:13 | disposition home or self-care (01) ==
PROVIDERS: Emergency Provider Emergency Medicine; PCP Family Medicine
DX: J06.9 Acute upper respiratory infection, unspecified (principal); I25.2 Old myocardial infarction; Z79.82 Long term (current) use of aspirin; Z79.899 Other long term (current) drug therapy
CPT/HCPCS: 71045; 80048; 85025; 87635; 99283; U0003

== ENCOUNTER 2021-11-08 10:37 | Emergency (ER) | payer OTHER, SELFPAY ==
[2020-03-18 13:26] VITALS: BMI 25.4
[2021-11-08 10:38] VITALS: BP 197/104; PULSE 73; RESP 18; TEMP 36.8; O2SAT 100; BMI 23.6
--- NOTE | 2021-11-08 11:10 | RAD_ITS ---
STUDY: X-RAY CHEST REASON FOR EXAM: Male, 61 years old. Dizziness TECHNIQUE: Single AP portable view of the chest. COMPARISON: Comparison is made with prior study dated 09/25/2020. FINDINGS: EKG electrodes are seen. There is hyperinflation of the lungs consistent with chronic obstructive lung disease (COPD). There is no demonstrated pleural abnormality. Normal size heart. A pacemaker device is seen overlying the left hemithorax. Normal mediastinum and shiraz. Normal visualized pulmonary arteries. There is atherosclerotic calcification of the aortic arch with tortuosity. Normal visualized thoracic spine. Normal visualized ribs, clavicles, and shoulders. There is no demonstrated abnormality of the visualized soft tissue structures of the upper abdomen. RAD/Chest 1 View (Portable) IMPRESSION: Hyperinflation. The lungs are clear. Electronically Signed: Shayan Chou MD at 12:19 EST , Service support ,
--- NOTE | 2021-11-08 11:10 | CT_ITS ---
STUDY: CT BRAIN WITHOUT CONTRAST REASON FOR EXAM: Male, 61 years old. Dizziness RADIATION DOSAGE (If Supplied By Facility): CTDIvol = ( 44.99 ) mGy, DLP = ( 829.85 ) mGycm TECHNIQUE: Transaxial CT imaging of the brain was performed without administration of intravenous contrast material. Individualized dose optimization techniques were used for this CT. COMPARISON: Comparison is made with prior examination dated 09/04/2019. FINDINGS: Normal soft tissue structures. Normal calvarium. There is mild cerebral atrophy with widening of the extra-axial spaces and ventricular dilatation. Normal white matter tracts of the cerebral hemispheres. Normal basal ganglia and thalami. Normal brainstem. Normal cerebellum. There is no intracranial hemorrhage. There are no findings of an acute ischemic infarction. Atherosclerotic calcification of the vertebral arteries and cavernous portions of the internal carotid arteries bilaterally. Normal visualized paranasal sinuses. CT/Brain/Head without Contrast IMPRESSION: Chronic involutional changes of the brain. Electronically Signed: Shayan Chou MD at 12:18 EST , Service support ,
[2021-11-08 11:26] LABS: Absolute Lymphocyte Count 1.65 X10^3/uL (0.83-4.51); Absolute Neutrophil Count 4.4 X10^3/uL (2.0-7.7); Basophil# 0.09 X10^3/uL; Basophil% 1.3 % (0-1); Eosinophil# 0.35 X10^3/uL; Eosinophils% 4.9 % (0-5); Hematocrit 52.6 % (40-54); Hemoglobin 17.3 g/dL (13.0-16.5); Lymphocyte # 1.65 X10^3/ul (0.83-4.51); Mean Corp Hgb Conc 32.9 g/dL (32-36); Mean Corpuscular Hgb 27.4 pg (27.0-32.0); Mean Corpuscular Volume 83.2 fL (80-94); Mean Platelet Vol. 9.4 fl (6.2-12.0); Monocyte# 0.67 X10^3/uL; Monocyte% 9.4 % (0-10); NRBC Flagged by Analyzer 0 % (0-5); Neutrophil # 4.37 X10^3/uL (2.7-7.7); Platelet Count 229 K/mm3 (150-450); RBC Distribution Width CV 13.6 % (11.6-14.6); RBC Distribution Width SD 41.1 fl (35.1-43.9); Red Blood Count 6.32 M/mm3 (4.6-6.2); White Blood Count 7.2 K/mm3 (4.4-11.0)
[2021-11-08 11:40] LABS: ALB/GLOB Ratio 0.9 RATIO (0.9-2.4); AST(SGOT) 17 U/L (15-37); Alanine Aminotransfer ALT/SGPT 23 U/L (16-61); Albumin, Serum 3.8 g/dL (3.2-5.0); Alkaline Phosphatase 110 U/L (45-117); Anion Gap 6 (5-15); BUN 13 mg/dL (7-18); BUN/Creat Ratio 10.8 RATIO (10-20); Calcium,Total 9.1 mg/dL (8.5-10.1); Chloride 106 mmol/L (98-107); EST Glomerular Filtration Rate 65 mL/min (>60); Est Glom Filt Rate - Afr Amer 79 mL/min (>60); Estimated Creatinine Clearance 83.57 ml/min; Globulin 4.3 g/dL (2.2-4.2); Glucose 118 mg/dL (74-106); Potassium 4.3 mmol/L (3.5-5.1); Protein, Total 8.1 g/dL (6.4-8.2); Sodium Level 139 mmol/L (136-145); Troponin-I HS 18 pg/mL (3.0-78.0)
--- NOTE | 2021-11-08 11:53 | EDS_ITS ---
HPI History of Present Illness Chief Complaint: Dizziness Informant: patient Onset/Context/Timing Onset: Today Context: Sudden Onset Timing: Lasts (30 minutes) Quality: Lightheaded, off balance Location: Head Worsened by: Standing Relieved by: Nothing Narrative Narrative: Patient presents with dizziness that began today. Patient states that he felt lightheaded and off balance this morning. Patient states he was leaning to the left whenever he walked. Patient states he walked outside but he was not sure if this made him feel any better or not. Patient states his dizziness got worse when he stood up this morning. Patient checked his blood pressure at home and it was 225/133 before he took his medications. Patient states that after he took his medications he recheck his blood pressure and it was 175/111. Patient states his symptoms only lasted approximately 30 minutes. Patient denies any shortness of breath. Patient denies any nausea or vomiting. Patient denies any diaphoresis. Patient states he has chronic tinnitus but denies any changes in that or changes in hearing. [facility] Medical History (Updated 11/08/21 @ 14:[address] Kade Negron DO) Atherosclerosis of coronary artery of [place] heart without angina pectoris Essential hypertension History of kidney stones TIA (transient ischemic attack) Home Medications aspirin 81 mg PO DAILY 09/25/20 [History Last Taken Unknown] carvedilol 12.5 mg tablet 12.5 mg PO BID #180 tablet 02/18/21 [Rx Last Taken Unknown] pravastatin 20 mg tablet 20 mg PO DAILY #90 tablet 02/18/21 [Rx Last Taken Unknown] clopidogrel 75 mg tablet 75 mg PO DAILY #90 tab 05/23/21 [Rx Last Taken Unknown] lisinopril 20 mg tablet 10 mg PO DAILY #90 tab 05/23/21 [Rx Last Taken Unknown] Allergy/AdvReac Type Severity Reaction Status Date / Time penicillin V potassium Allergy Unknown Verified 11/08/21 10:40 [From Immanuel Osman] Family History (Reviewed 05/23/21 @ 14:24 by Jose Alberto Groves ENVIRONMENTAL SERVICES SUPERVISOR, ENVIRONMENTAL SERVICES SUPERVISOR-C) Father CAD (coronary artery disease) CABG, stent placement Cancer Heart disease Mother Heart disease Surgical History History of cholecystectomy History of coronary artery stent placement (04/01/20) History of eye surgery History of lithotripsy Presence of implantable cardioverter-defibrillator (ICD) (10/12/20) Social History Smoking Status: Former smoker how long ago did patient quit smokin and 1/2 years ago alcohol intake: current alcohol intake frequency: holidays/special occasions only substance use type: does not use caffeine: Yes Type: coffee Number of servings: 1 ROS ROS ED Constitutional Constitutional ED: Denies chills or fever(s) Eyes Eyes: Denies blurry vision or change in vision ENT ENT ED: Denies rhinorrhea or sore throat Cardiovascular Cardiovascular: Denies chest pain or palpitations Respiratory/Chest Respiratory/Chest: Denies cough or dyspnea Gastrointestinal Gastrointestinal: Denies nausea or vomiting Genitourinary Genitourinary ED: Denies dysuria or hematuria Musculoskeletal Musculoskeletal: Denies back pain or neck pain Integumentary Denies abscess or rash Neurologic Neurologic: Denies headache(s) or weakness Allergic/Immunologic Allergic/Immunologic ED: Denies mouth swelling or urticaria EXAM Physical Exam Const Vital Signs: 11/08/21 10:38 11/08/21 10:49 11/08/21 13:40 Temperature 98.2 F Temperature Source Temporal Pulse Rate 73 67 Respiratory Rate 18 19 H Respiratory Effort Normal Non-Labored Respiratory Pattern Normal Blood Pressure 197/104 H 158/92 H Blood Pressure Mean 135 114 Pulse Ox 100 97 Oxygen Delivery Method Room Air Room Air Positive well nourished and well developed General Appearance ED: well developed HEENT Reports moist mucous membranes Neck supple and no JVD Resp normal respiratory effort and clear to auscultation bilaterally Cardio regular rate, regular rhythm and no murmurs GI normal to inspection, nondistended, normoactive bowel sounds and non-tender Palpation: soft Extremity normal to inspection General Extremety ED: Negative for edema or tenderness General Extremity: Negative for edema Neuro oriented x3, CN's II-XII intact bilaterally and no sensory deficits noted Sensorium / Orientation: alert Motor Exam: strength 5/5 throughout Psych mental status grossly normal Skin no rashes or lesions noted MDM MDM MDM Narrative Medical decision making narrative: EKG was obtained. On my interpretation, it showed a sinus rhythm with first-degree AV block with a rate of 73. QRS interval and QTc intervals were normal. There is left axis deviation at -51. There is a left anterior fascicular block noted. There are no acute ST or T wave changes. Portable 1 view chest x-ray was obtained. On my interpretation, lung mitchell are clear. There is normal cardiac silhouette. Bony thorax is normal. There is no acute process noted. Radiologist also interpreted the x- ray and agrees. CT scan of the brain was obtained. There is no acute intracranial abnormality. CBC was obtained and was within normal limits. Comprehensive metabolic profile was obtained and was normal. High-sensitivity troponin was normal. Patient is feeling better on reevaluation. Patient was instructed to follow-up with his primary care physician. Patient was advised that this may be blood pressure related. Patient was instructed to continue to monitor his blood pressures. Patient was instructed to follow-up with his primary care doctor and in 5 to 7 days. Patient understood and was agreeable with the plan. All questions were answered. Lab Data Attestation: I reviewed the patient's lab results. Labs: Laboratory Results - last 24 hr 11/08/21 11/08/21 10:45 10:45 WBC 7.2 RBC 6.32 H Hgb 17.3 H Hct 52.6 MCV 83.2 MCH 27.4 MCHC 32.9 RDW Std Deviation 41.1 RDW Coeff of Joe 13.6 Plt Count 229 MPV 9.4 Immature Gran % (Auto) 0.400 Neut % (Auto) 61.0 Lymph % (Auto) 23.0 [place] % (Auto) 9.4 Eos % (Auto) 4.9 Baso % (Auto) 1.3 H Absolute Neuts (auto) 4.4 Absolute Lymphs (auto) 1.65 Nucleated RBC % 0 Sodium 139 Potassium 4.3 Chloride 106 Carbon Dioxide 27.0 Anion Gap 6 BUN 13 Creatinine 1.20 Estim Creat Clear Calc 83.57 Est GFR (MDRD) Af Amer 79 Est GFR (MDRD) Non-Af 65 BUN/Creatinine Ratio 10.8 Glucose 118 H Calcium 9.1 Total Bilirubin 1.00 AST 17 ALT 23 Alkaline Phosphatase 110 Troponin I High Sens 18 Total Protein 8.1 Albumin 3.8 Globulin 4.3 H Albumin/Globulin Ratio 0.9 Radiography Chest X-Ray - ED: 1 View, Read by ED Physician, Read by Radiologist and Normal EKG Initial EKG: Attestation: I personally reviewed and interpreted this EKG as follows: Interpretation: Sinus Rhythm (With first-degree AV block with a rate of 73), No Acute Injury Pattern and LAFB Prior EKG tracings: available for review Prior: Unchanged (10/05/2020) Discharge Plan Triage Chief Complaint: Dizziness ED Provider: Kade Negron Dx/Rx/DC Orders Clinical Impression: Dizziness Instructions: ED Dizziness, Uncertain Cause Prescriptions: No Action clopidogrel [Plavix] 75 mg tablet 75 mg PO DAILY Qty: 90 RF: 3 lisinopril 20 mg tablet 10 mg PO DAILY Qty: 90 RF: 3 aspirin 81 MG tablet 81 mg PO DAILY RF: 0 carvedilol 12.5 mg tablet 12.5 mg PO BID Qty: 180 RF: 3 pravastatin 20 mg tablet 20 mg PO DAILY Qty: 90 RF: 3 Primary Care Provider: Gonzalo Franklin Referrals: Gonzalo Franklin MD [Primary Care Provider] - 5-7 Days Activity Restrictions/Additional Instructions: Continue to monitor your blood pressures. Keep a log of your blood pressures and take to your next appointment with your primary care physician. Disposition Disposition: Home, Self Care
[2021-11-08 13:40] VITALS: BP 158/92; PULSE 67; RESP 19; O2SAT 97
[2021-11-08 14:21] VITALS: BP 148/89; PULSE 71; RESP 16; O2SAT 98
== END 2021-11-08 14:22 | disposition home or self-care (01) ==
PROVIDERS: Emergency Provider Emergency Medicine; PCP Family Medicine
DX: R42 Dizziness and giddiness (principal); I44.0 Atrioventricular block, first degree; I44.4 Left anterior fascicular block; I10 Essential (primary) hypertension; I25.10 Atherosclerotic heart disease of native coronary artery without angina pectoris; Z87.442 Personal history of urinary calculi; Z86.73 Personal history of transient ischemic attack (TIA), and cerebral infarction without residual deficits; Z95.5 Presence of coronary angioplasty implant and graft; Z79.82 Long term (current) use of aspirin; Z79.899 Other long term (current) drug therapy; Z87.891 Personal history of nicotine dependence
CPT/HCPCS: 70450; 71045; 80053; 84484; 85025; 93005; 99285; A4216

== ENCOUNTER 2021-12-14 15:54 | Emergency (ER) | payer OTHER, SELFPAY ==
[2020-03-18 13:26] VITALS: BMI 25.4
[2021-12-14] VITALS (9 sets, daily range): BP systolic 141–204; BP diastolic 96–117; PULSE 69–77; RESP 15–23; TEMP 36; O2SAT 94–100; BMI 27.7
--- NOTE | 2021-12-14 16:01 | EKG12_ITS ---
Test Reason : CP Blood Pressure : / mmHG Vent. Rate : 076 BPM Atrial Rate : 076 BPM P-R Int : 222 ms QRS Dur : 096 ms QT Int : 426 ms P-R-T Axes : 043 -44 062 degrees QTc Int : 479 ms Sinus rhythm with 1st degree A-V block Left axis deviation Abnormal ECG Confirmed by SCOTT ALTMAN, JAZMINE ([id number]), legal editor ANNE-MARIE PINON ([id number]) on 12/15/2021 1:34:25 PM Referred By: ARABELLA/JOEL Confirmed By:JAZMINE CHAVEZ MD
--- NOTE | 2021-12-14 16:34 | RAD_ITS ---
History: chest pain EXAMINATION/TECHNIQUE: XR Chest 1 View: Portable COMPARISON: November 08, 2021 FINDINGS: LINES/DEVICES: Parasternal defibrillator wire remains in place. LUNGS: No consolidation, edema or effusion. Lucency of the right lung suggestive of emphysema. No pneumothorax. MEDIASTINUM AND CARDIOVASCULAR STRUCTURES: Cardiac silhouette not enlarged. Central airways and mediastinal contour are unremarkable. BONES AND SOFT TISSUES: Unremarkable. RAD/Chest 1 View (Portable) IMPRESSION: No radiographic evidence of acute cardiopulmonary disease. No interval change. at 1650 Reported and signed by: Eliseo Soriano MD Electronically Signed: Eliseo Soriano MD at 16:49 EST Tel , Service support ,
--- NOTE | 2021-12-14 16:53 | ED.VIS.CHEST ---
HPI History of Present Illness Chief Complaint: Chest Pain Informant: patient Onset/Context/Timing Onset: Today Activity at onset: gradual Timing: Continuous Quality: Positive for Sharp Location: - (Lower chest and epigastric area) Worsened By: Nothing Relieved By: Nothing Associated Symptoms: Positive for Dyspnea; Negative for Nausea, Vomiting, Diaphoresis, Cough, Fever, Lightheadedness, Acid Reflux and Palpitations Narrative Narrative: Patient presents with chest pain and hypertension that began today. Patient states it is gradually gotten worse throughout the day. Patient states it has been constant. Patient states it is sharp. Patient states it is over his lower chest. Patient states nothing makes it better nothing makes it worse. Patient admits to some shortness of breath that he had while he was carrying a heavy bag of corn. Patient states this improved with rest. Patient denies any cough or fever. Patient denies any diaphoresis or lightheadedness. CVD Risk Factors: Positive for Hypertension and Family History 1' </=55; Negative for Diabetes, Hypercholesterolemia and Smoking PE Risk Factors: Negative for Recent Travel/Surgery, Recent Immobilization, Prior DVT or PE, Cancer and OCP + Smoking + >/=35 [facility] Medical History (Updated 12/14/21 @ 21:[address] Kade Negron, ) Atherosclerosis of coronary artery of [place] heart without angina pectoris Essential hypertension History of kidney stones TIA (transient ischemic attack) Home Medications aspirin 81 mg PO DAILY 09/25/20 [History Last Taken Unknown] carvedilol 12.5 mg tablet 12.5 mg PO BID #180 tablet 02/18/21 [Rx Last Taken Unknown] pravastatin 20 mg tablet 20 mg PO DAILY #90 tablet 02/18/21 [Rx Last Taken Unknown] clopidogrel 75 mg tablet 75 mg PO DAILY #90 tab 05/23/21 [Rx Last Taken Unknown] lisinopril 20 mg tablet 10 mg PO DAILY #90 tab 05/23/21 [Rx Last Taken Unknown] Allergy/AdvReac Type Severity Reaction Status Date / Time penicillin V potassium Allergy Unknown Verified 12/14/21 15:55 [From Immanuel Osman] Family History (Reviewed 05/23/21 @ 14:24 by Jose Alberto Groves INSIDE STEWARD/STEWARDESS, INSIDE STEWARD/STEWARDESS-C) Father CAD (coronary artery disease) CABG, stent placement Cancer Heart disease Mother Heart disease Surgical History History of cholecystectomy History of coronary artery stent placement (04/01/20) History of eye surgery History of lithotripsy Presence of implantable cardioverter-defibrillator (ICD) (10/12/20) Social History Smoking Status: Former smoker how long ago did patient quit smokin and 1/2 years ago alcohol intake: current alcohol intake frequency: holidays/special occasions only substance use type: does not use caffeine: Yes Type: coffee Number of servings: 1 ROS ROS ED Constitutional Constitutional ED: Denies chills or fever(s) Eyes Eyes: Denies blurry vision or change in vision ENT ENT ED: Denies rhinorrhea or sore throat Cardiovascular Cardiovascular: Reports chest pain; Denies palpitations Respiratory/Chest Respiratory/Chest: Reports dyspnea; Denies cough Gastrointestinal Gastrointestinal: Denies abdominal pain, nausea or vomiting Genitourinary Genitourinary ED: Denies dysuria or hematuria Musculoskeletal Musculoskeletal: Denies back pain or neck pain Integumentary Denies abscess or rash Neurologic Neurologic: Denies headache(s) or weakness Allergic/Immunologic Allergic/Immunologic ED: Denies mouth swelling or urticaria EXAM Physical Exam Const Vital Signs: 12/14/21 15:55 12/14/21 16:20 12/14/21 16:30 Temperature 96.8 F L Temperature Source Temporal Pulse Rate 77 Respiratory Rate 16 Respiratory Effort Normal Non-Labored Blood Pressure 159/117 H Blood Pressure Mean 131 Pulse Ox 100 94 Oxygen Delivery Method Room Air Room Air 12/14/21 16:31 12/14/21 17:14 12/14/21 18:25 Temperature Temperature Source Pulse Rate 73 69 71 Respiratory Rate 16 18 19 H Respiratory Effort Blood Pressure 186/109 H 181/112 H 183/107 H Blood Pressure Mean 134 135 132 Pulse Ox 95 95 97 Oxygen Delivery Method Room Air Room Air Room Air 12/14/21 19:00 12/14/21 20:13 12/14/21 21:02 Temperature Temperature Source Pulse Rate 70 77 71 Respiratory Rate 18 21 H 23 H Respiratory Effort Blood Pressure 204/111 H 204/111 H 150/97 H Blood Pressure Mean 142 142 114 Pulse Ox 98 98 95 Oxygen Delivery Method Room Air Room Air Positive well nourished and well developed General Appearance ED: well developed HEENT normocephalic and atraumatic Eyes PERRL and EOMs intact bilaterally Neck supple and no JVD Chest Wall palpation of chest normal Resp normal respiratory effort and clear to auscultation bilaterally Effort and Inspection: Negative for respiratory distress Cardio regular rate, regular rhythm and no murmurs GI normal to inspection, nondistended, normoactive bowel sounds, soft to palpation, non-tender and non-distended Extremity normal to inspection General Extremety ED: Negative for edema or tenderness General Extremity: Negative for edema Neuro oriented x3, CN's II-XII intact bilaterally and no sensory deficits noted Sensorium / Orientation: awake and alert Motor Exam: strength 5/5 throughout Psych mental status grossly normal Heart Score History: Slightly/Non-Suspicious ECG: Normal Age: >45 - <65 years Risk Factors: >/= 3 Risk Factors or History of CAD Troponin: </= Normal Limit Score: 3 MDM MDM MDM Narrative Medical decision making narrative: Patient stated that he took 10 mg of lisinopril prior to arrival. Patient's blood pressure remained elevated. Patient was given a dose of labetalol here. EKG was obtained. On my interpretation it showed a normal sinus rhythm with a rate of 76 with first-degree AV block. OK interval was 222 ms. QRS and QTc intervals were normal. There is left axis deviation at -44. There are no acute ST or T wave changes. CBC and basic metabolic profile were obtained and were essentially within normal limits. Initial high-sensitivity troponin was normal at 14. 2-hour repeat high-sensitivity troponin was normal at 16. Portable 1 view chest x-ray was obtained. On my interpretation, lung mitchell are clear. There is normal cardiac silhouette. Bony thorax is normal. There is no acute process noted. Radiologist also interpreted the x-ray and agrees. Patient's blood pressure improved to 150/97. Patient feels better. Patient has a HEART score of 3. Patient was advised that this is a low risk for acute cardiac event. Patient was instructed to follow-up with his primary care physician in 3 to 5 days. Patient was instructed to continue to monitor his blood pressure. Patient was instructed to return if worse in any way. Patient understood and was agreeable with the plan. All questions were answered. Lab Data Attestation: I reviewed the patient's lab results. Labs: Laboratory Results - last 24 hr 12/14/21 12/14/21 12/14/21 16:45 16:45 18:01 WBC 6.7 RBC 5.81 Hgb 15.9 Hct 47.8 MCV 82.3 MCH 27.4 MCHC 33.3 RDW Std Deviation 39.9 RDW Coeff of Joe 13.4 Plt Count 213 MPV 9.2 Immature Gran % (Auto) 0.300 Neut % (Auto) 61.5 Lymph % (Auto) 24.5 [place] % (Auto) 9.6 Eos % (Auto) 3.1 Baso % (Auto) 1.0 Absolute Neuts (auto) 4.1 Absolute Lymphs (auto) 1.65 Nucleated RBC % 0 Sodium 137 Potassium 4.3 Chloride 105 Carbon Dioxide 28.0 Anion Gap 4 L BUN 16 Creatinine 1.21 Estim Creat Clear Calc 82.88 Est GFR (MDRD) Af Amer 78 Est GFR (MDRD) Non-Af 65 BUN/Creatinine Ratio 13.2 Glucose 109 H Calcium 8.9 Troponin I High Sens 14 16 Radiography Chest X-Ray - ED: 1 View, Read by ED Physician, Read by Radiologist and Normal Diagnostic Testing: Clinical Impression(s) from Imaging Studies Chest X-Ray 12/14/21 16:34 IMPRESSION: No radiographic evidence of acute cardiopulmonary disease. No interval change. at 1650 Reported and signed by: Eliseo Soriano MD Electronically Signed: Eliseo Soriano MD at 16:49 EST Tel , Service support , EKG Initial EKG: Interpretation: Sinus Rhythm (With first-degree AV block with a rate of 76) and No Acute Injury Pattern Comments: There is left axis deviation at -44 Prior EKG tracings: available for review Prior: Unchanged (11/08/2021) Discharge Plan Triage Chief Complaint: Chest Pain ED Provider: Kade Negron Dx/Rx/DC Orders Clinical Impression: Chest pain Instructions: ED Chest Pain, Uncertain Cause Prescriptions: No Action clopidogrel [Plavix] 75 mg tablet 75 mg PO DAILY Qty: 90 RF: 3 lisinopril 20 mg tablet 10 mg PO DAILY Qty: 90 RF: 3 aspirin 81 MG tablet 81 mg PO DAILY RF: 0 carvedilol 12.5 mg tablet 12.5 mg PO BID Qty: 180 RF: 3 pravastatin 20 mg tablet 20 mg PO DAILY Qty: 90 RF: 3 Primary Care Provider: Gonzalo Franklin Referrals: Gonzalo Franklin MD [Primary Care Provider] - 3-5 Days Disposition Disposition: Home, Self Care
[2021-12-14 16:54] LABS: Absolute Lymphocyte Count 1.65 X10^3/uL (0.83-4.51); Absolute Neutrophil Count 4.1 X10^3/uL (2.0-7.7); Basophil# 0.07 X10^3/uL; Eosinophil# 0.21 X10^3/uL; Eosinophils% 3.1 % (0-5); Hematocrit 47.8 % (40-54); Hemoglobin 15.9 g/dL (13.0-16.5); Lymphocyte # 1.65 X10^3/ul (0.83-4.51); Lymphocyte % 24.5 % (19-41); Mean Corp Hgb Conc 33.3 g/dL (32-36); Mean Corpuscular Hgb 27.4 pg (27.0-32.0); Mean Corpuscular Volume 82.3 fL (80-94); Mean Platelet Vol. 9.2 fl (6.2-12.0); Monocyte# 0.65 X10^3/uL; Monocyte% 9.6 % (0-10); NRBC Flagged by Analyzer 0 % (0-5); Neutrophil # 4.14 X10^3/uL (2.7-7.7); Neutrophil % 61.5 % (47-70); Platelet Count 213 K/mm3 (150-450); RBC Distribution Width CV 13.4 % (11.6-14.6); RBC Distribution Width SD 39.9 fl (35.1-43.9); Red Blood Count 5.81 M/mm3 (4.6-6.2); White Blood Count 6.7 K/mm3 (4.4-11.0)
[2021-12-14 17:12] LABS: Anion Gap 4 (5-15); BUN 16 mg/dL (7-18); BUN/Creat Ratio 13.2 RATIO (10-20); Calcium,Total 8.9 mg/dL (8.5-10.1); Chloride 105 mmol/L (98-107); Creatinine, Serum 1.21 mg/dL (0.70-1.30); EST Glomerular Filtration Rate 65 mL/min (>60); Est Glom Filt Rate - Afr Amer 78 mL/min (>60); Estimated Creatinine Clearance 82.88 ml/min; Glucose 109 mg/dL (74-106); Potassium 4.3 mmol/L (3.5-5.1); Sodium Level 137 mmol/L (136-145); Troponin-I HS 14 pg/mL (3.0-78.0)
[2021-12-14 18:27] LABS: Troponin-I HS 16 pg/mL (3.0-78.0)
[2021-12-14] MEDS: Labetalol (Prefilled) 20 MG/4 ML 10 MG IV (19:49)
== END 2021-12-14 22:10 | disposition home or self-care (01) ==
PROVIDERS: Emergency Provider Emergency Medicine; PCP Family Medicine; Visit Provider Emergency Medicine
DX: R07.9 Chest pain, unspecified (principal); I25.10 Atherosclerotic heart disease of native coronary artery without angina pectoris; I10 Essential (primary) hypertension; Z79.82 Long term (current) use of aspirin; Z79.899 Other long term (current) drug therapy; Z86.73 Personal history of transient ischemic attack (TIA), and cerebral infarction without residual deficits; Z87.891 Personal history of nicotine dependence
CPT/HCPCS: 71045; 80048; 84484; 85025; 93005; 96374; 99284; A4216